=== PATIENT | male | born 1950 | race Caucasian/White ===

== ENCOUNTER → 2017-11-10 | Outpatient (CLI) | payer OTHER ==
[~2017-11-10] MED LIST: ATEN50TA8 PO; CIPR-255 PO; CLC100 PO; COEN1CAP28 PO; DOXA4TAB2 PO; EZET10TA47 PO; GABA600T PO; MULT-506 PO; OMEP20TA PO
--- NOTE | 2017-11-25 12:06 | CODING QUERY MEDICAL NECESSITY ---
SUPPORTING DIAGNOSIS NEEDED A supporting diagnosis is required for the test/procedure performed on this patient in order for us to be reimbursed by the patient's insurance. Please provide a supporting diagnosis for the following test/procedure listed below next to the test name along with your signature. *If there is no additional diagnosis for this patient that would support the following test/procedure please document that below next to the test/procedure. Test(s)/Procedure(s) that require a supporting diagnosis: * PSA DIAGNOSIS: Provider Signature: Date: Thank you Letty Mccauley [email or web address] Once completed, please kindly fax back to [phone] For questions please call [phone]
== END | disposition home or self-care (01) ==
LOC: C.LABBC 11:01
PROVIDERS: ATTEND Urology
DX: N52.9 Male erectile dysfunction, unspecified (principal); C61 Malignant neoplasm of prostate

== ENCOUNTER → 2018-02-20 | Outpatient (CLI) | payer OTHER ==
--- NOTE | 2018-02-20 12:47 | DIAGNOSTIC IMAGING REPORT ---
THORACIC SPINE 3 VIEWS HISTORY: New onset Back pain. Prostate cancer. COMPARISON: Thoracic spine 06/04/2013. FINDINGS: There is no fracture. No subluxation. Disc spaces are relatively preserved. Flowing anterior osteophytes within the mid to lower thoracic spine, unchanged. This is consistent with diffuse idiopathic skeletal hyperostosis. Paraspinal soft tissues are unremarkable. IMPRESSION: No fracture or subluxation within the thoracic spine. Diffuse idiopathic skeletal hyperostosis is again noted. Electronically signed by: Naveed Beltran M.D. 02/20/2018 12:46 PM Dictated Date/Time: 02/20/2018 12:42 PM
--- NOTE | 2018-02-20 12:51 | DIAGNOSTIC IMAGING REPORT ---
L-SPINE MIN 4 VIEWS ROUTINE CLINICAL HISTORY: 67 years-old Male presenting with M54.9 G62.9 low back pain radiating down the right leg. TECHNIQUE: Frontal, bilateral oblique, lateral, and coned in lateral views of lumbar spine were obtained. COMPARISON: None. FINDINGS: No scoliosis. Normal lumbar lordosis. Vertebral bodies maintain normal height and alignment. Anterior osteophytosis noted at several levels. Intervertebral disc heights preserved. Facet arthropathy suggested at L4-5 and L5-S1. Osseous neural foraminal narrowing may result. No compression deformity or evidence of subluxation. IMPRESSION: Multilevel degenerative changes with facet arthropathy potentially resulting in osseous neural foraminal narrowing at L4-5 and L5-S1. Electronically signed by: Figueroa Jordan M.D. 02/20/2018 12:50 PM Dictated Date/Time: 02/20/2018 12:47 PM
== END | disposition home or self-care (01) ==
LOC: C.RAD1850 12:01
PROVIDERS: ATTEND Student in an Organized Health Care Education/Training Program
DX: M47.27 Other spondylosis with radiculopathy, lumbosacral region (principal); M48.07 Spinal stenosis, lumbosacral region; M48.14 Ankylosing hyperostosis [Forestier], thoracic region; G62.9 Polyneuropathy, unspecified

== ENCOUNTER 2022-12-28 05:07 | Observation (INO) ==
--- NOTE | 2022-11-29 11:08 | PAT Medication Instructions ---
Medication Instructions Date of Service November 29, 2022 Home Medications aspirin 81 mg tablet,delayed release 81 mg PO QAM famotidine 40 mg tablet 40 mg PO QAM gabapentin 800 mg tablet 800 mg PO TID metoprolol succinate 25 mg tablet,extended release 24 hr 25 mg PO QAM multivitamin 1 tab PO QAM pravastatin 40 mg tablet 40 mg PO HS duloxetine 20 mg capsule,delayed release 20 mg PO QAM kjiwuoj-hxblwwnaanjha-oyuduvif 250 mg-250 mg-65 mg tablet (Excedrin Migraine) 2 tab PO Q12H PRN Migraine Headache diphenhydramine HCl 50 mg capsule (Banophen) 50 mg PO HS PRN Sleep ASK your surgeon for instructions aoiqdnr-lrrdnacfqsrdc-uzokskpk 250 mg-250 mg-65 mg tablet (Excedrin Migraine) 2 tab PO Q12H PRN Migraine Headache DO NOT take the morning of surgery multivitamin 1 tab PO QAM Take morning of surgery With a small sip of water, OTHERWISE NOTHING TO EAT OR DRINK AFTER MIDNIGHT: aspirin 81 mg tablet,delayed release 81 mg PO QAM (continue as normal unless told otherwise by surgeon) famotidine 40 mg tablet 40 mg PO QAM gabapentin 800 mg tablet 800 mg PO TID metoprolol succinate 25 mg tablet,extended release 24 hr 25 mg PO QAM duloxetine 20 mg capsule,delayed release 20 mg PO QAM Take evening before surgery gabapentin 800 mg tablet 800 mg PO TID pravastatin 40 mg tablet 40 mg PO HS diphenhydramine HCl 50 mg capsule (Banophen) 50 mg PO HS PRN Sleep (if needed) Other Notes If you have any questions please call us at [phone] or [phone] or [phone] or [phone]
--- NOTE | 2022-12-02 12:30 | Anesthesiology Consultation ---
Date of Service December 02, 2022 Assessment & Plan (1) Encounter for pre-operative examination: - COVID screening: Per assessment on 12/02: No known COVID-19 positive contacts or current COVID-19 related symptoms. Travel screen negative. Patient vaccinated. At surgeon discretion if preop Covid testing being done. - Outpatient joint assessment: Pt currently scheduled for inpatient pathway. If surgeon requests review for outpatient joint pathway, patient is acceptable candidate for outpatient joint program from anesthesia standpoint pending surgeon's office assessment of pt motivation/strong home support/completion of same day joint program preop requirements. Chart Review Chart Review: Acceptable Risk for Surgery and Patient seen in Pre Admission Testing Teaching & Discussion Pre-Anesthesia Teaching/Discussion Notes: Instructed NPO after midnight before surgery,except medications with 15 cc of water. Medication instructions provided according to the PAT guidelines. History Surgery Operation Date: 12/28/22 07:00 Proposed Procedures p Left Total Knee Arthroplasty - Vito Houston MD Height/Weight Height: 5 ft 8 in Weight: 98.2 kg Allergies Allergy/AdvReac Type Severity Reaction Status Date / Time latex Allergy Mild RASH AFTER Verified 11/26/22 13:52 LONG EXPOSURE tetanus immune globulin Allergy Mild UNSURE, Verified 11/26/22 13:52 POSS RASH Medications Home Medications Medication Instructions Recorded Confirmed Last Taken aspirin 81 mg tablet,delayed 81 mg PO QAM 08/22/20 11/26/22 05/10/21 release famotidine 40 mg tablet 40 mg PO QAM 08/22/20 11/26/22 05/11/21 gabapentin 800 mg tablet 800 mg PO TID 08/22/20 11/26/22 05/11/21 metoprolol succinate 25 mg 25 mg PO QAM 08/22/20 11/26/22 05/11/21 tablet,extended release 24 hr multivitamin 1 tab PO QAM 08/22/20 11/26/22 05/11/21 pravastatin 40 mg tablet 40 mg PO HS 08/22/20 11/26/22 05/10/21 duloxetine 20 mg capsule,delayed 20 mg PO QAM 08/26/20 11/26/22 05/11/21 release lcfoyly-ncurzgtbvuxeu-hcztgycz 250 2 tab PO Q12H PRN Migraine Headache 05/11/21 11/26/22 05/11/21 07:00 mg-250 mg-65 mg tablet (Excedrin 2 pills Migraine) diphenhydramine HCl 50 mg capsule 50 mg PO HS PRN Sleep 05/11/21 11/26/22 05/10/21 (Banophen) Past Medical History Medical History 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, no current/residual issues CKD (chronic kidney disease), stage III Per records GERD (gastroesophageal reflux disease) Hypertriglyceridemia Parathyroid disorder S/p parathyroidectomy secondary to hypercalcemia Premature atrial contraction Per records Prostate cancer 2018 - s/p prostatectomy Exercise / Class Metabolic Activity II 4-5 Yardwork/Stairs/Walk up hill Past Family History Family History Mother Breast cancer Hypertension Father Cancer Other Diabetes Past Surgical History Surgical History H/O cataract removal with insertion of prosthetic lens right and left H/O oral surgery H/O prostatectomy 02/20/2018 prostate cancer H/O right inguinal hernia repair (10/02/20) Right Open Inguinal Hernia Repair with Mesh Dr. Kraus 10/02/2020 LMA#5. History of appendectomy History of cardiac cath having palpitations and found to have PVC's, [facility]; f/u PCP Hx of blepharoplasty Hx of colonoscopy Hx of parathyroidectomy left side Hx of vasectomy Status post gamma knife treatment for acoustic neuroma 2004 Past Anesthesia History No Hx of Anesthesia Complications and No Family Hx of Anesthesia Complications History of PONV No Hx of PONV and No Hx of Motion Sickness Social History Smoking Status: Never smoker Do You Dip or Chew Tobacco: No Hx Alcohol Use: Yes alcohol intake frequency: holidays/special occasions only Hx Substance Use: No substance use type: does not use Review of Systems Patient denies chest pain, shortness of breath, dyspnea on exertion, fever, chills, cough, wheezing, palpitations. Physical Exam Vital Signs VITALS BP 149/81 P 62 TEMP 98.3 SP02 97%RA RESP 16 PHYSICAL Full cervical extension range of motion. Full TMJ range of motion. TMD 4 finger breaths Mallampati Score 1 Dentition: full upper/lower dentures Lungs: clear throughout to auscultation Cardiac: regular rate and rhythm, no murmurs noted Spine: normal Carotid arteries: negative bruit Extremities: no edema Lab Results Anesthesia Preop Results Results Anesthesia Widget: WBC 7.10 K/ul (4.8-10.8) 12/02/22 Hgb 15.5 g/dl (14.0-18.0) 12/02/22 Hct 45.8 % (40.1-51.0) 12/02/22 Plt 199 K/uL (130-400) 12/02/22 Na 142 mmol/L (136-145) 12/02/22 K 4.2 mmol/L (3.5-5.1) 12/02/22 Cl 104 mmol/L (98-107) 12/02/22 CO2 34 mmol/L (21-32) H 12/02/22 BUN 12 mg/dl (6-23) 12/02/22 Creat 1.06 mg/dl (0.6-1.4) 12/02/22 Glucose Level 93 mg/dl (70-99(Fasting)) 12/02/22 PT 10.8 Seconds (9.0-12.0) 12/02/22 PTT 27.7 Seconds (21.0-31.0) 12/02/22 INR 1.0 (0.9-1.1) 12/02/22 Urine Color Yellow 12/02/22 Urine Appearance Clear (Clear) 12/02/22 Urine pH 6.5 (4.5-7.5) 12/02/22 Urine Specific [place] 1.011 (1.000-1.030) 12/02/22 Urine Protein Negative (Negative) 12/02/22 Urine Glucose (UA) Negative (Negative) 12/02/22 Urine Ketones Negative (Negative) 12/02/22 Urine Blood Negative (Negative) 12/02/22 Urine Nitrite Negative (Negative) 12/02/22 Urine Bilirubin Negative (Negative) 12/02/22 Urine Urobilinogen Negative (Negative) 12/02/22 Urine Leukocyte Esterase Negative (Negative) 12/02/22 Blood Type O Negative 12/02/22 Antibody Screen NEGATIVE 12/02/22 Testing Electrocardiogram Date: 12/02/22 Findings: + NSR @ (61) Chest X-Ray Date: 12/02/22 FINDINGS: PA and lateral chest radiographs are compared to study dated 06/15/2021. The cardiomediastinal silhouette is unremarkable noting atherosclerotic calcification of the thoracic aorta. The lungs and pleural spaces are clear. There is no pneumothorax. The skeletal structures are osteopenic. The bony thorax appears intact. IMPRESSION: No active disease in the chest. COVID-19 Risk Screen Screening Information COVID-19 Screen Date: 12/02/22 Exposure 21 Days Family/Household +COVID Last 21 Days: No Exposure 10 Days Any COVID Exposure Last 10 Days: No Symptoms Last 10 Days Experienced COVID Sx Last 10 Days: No + COVID 0-90 Days COVID + in Last 0-90 Days: No
[2022-12-28] MEDS ORDERED: Scopolamine 1 MG TDSY TD SCH (06:00)
[2022-12-28] MEDS ORDERED: LR 60ML/HR IV SCH (06:00)
[2022-12-28] MEDS ORDERED: ROPIVACAINE 0.5% HCL/PF 150 MG, BUPIVACAINE 0.75% MPF 20 ML, EPINEPHrine 0.15 MG, Ketor... INFIL SCH (06:00)
[2022-12-28] MEDS ORDERED: TRANEXAMIC ACID 1,000 MG **IV Intra-op IV SCH (06:00)
[2022-12-28] MEDS ORDERED: ceFAZolin 2000MG 2,000 MG/15 ML SYR IV SCH (06:00)
[2022-12-28] MEDS ORDERED: LR 500ML BOLUS, THEN 15ML/HR IV SCH (06:00)
[2022-12-28] MEDS ORDERED: TRANEXAMIC ACID 1,000 MG **IV Pre-op IV SCH (06:00)
[2022-12-28] MEDS ORDERED: ACETAMINOPHEN 500 MG TAB PO SCH (06:00)
[2022-12-28] MEDS ORDERED: CeleBREX 200 MG CAP PO SCH (06:00)
[2022-12-28] MEDS ORDERED: EPINEPHrine INJ 1 MG/ML AMP ONE (06:32)
[2022-12-28] MEDS ORDERED: ROPIVACAINE 0.5% 5 MG/ML 30 ML VIAL ONE (06:32)
[2022-12-28] MEDS ORDERED: BUPIVACAINE 0.5 % 5 MG/1 ML PF 10ML VIAL ONE (06:32)
--- NOTE | 2022-12-28 06:32 | History & Physical Bridge Note ---
Date of Service December 28, 2022 History & Physical Bridge Note I have examined the patient, reviewed the History & Physical and in the interval since the performance of the History & Physical I have noted the following changes of clinical significance: no changes noted Patient is aware of the risks, is asymptomatic, and tested negative for COVID- 19.
[2022-12-28] MEDS ORDERED: MIDAZOLAM HCL 1 MG/ML 2ML VIAL ONE (06:58)
[2022-12-28] MEDS ORDERED: fentaNYL citrate 100 MCG/2 ML VIAL ONE ×2 (06:58→10:17)
[2022-12-28] MEDS ORDERED: LIDOCAINE 2% MPF LOCAL 5 ML VIAL INFIL ONE (07:21)
[2022-12-28] MEDS ORDERED: PROPOFOL IV EMULSION 10 MG/ML 20 ML VIAL IV ONE (07:21)
[2022-12-28] MEDS ORDERED: ORTHO JOINT ANESTHETIC ONE (07:32)
[2022-12-28] MEDS ORDERED: ePHEDrine sulfate 50 MG/ML SYR ONE (09:02)
[2022-12-28] MEDS ORDERED: ATROPINE SULFATE 0.1 MG/ML 10ML SYR IV PRN (10:17)
[2022-12-28] MEDS ORDERED: fentaNYL citrate 100 MCG/2 ML VIAL IV PRN (10:17)
[2022-12-28] MEDS ORDERED: ONDANSETRON INJ 2 MG/ML 2 ML VIAL IV PRN ×2 (10:17→12:43)
[2022-12-28] MEDS ORDERED: PROMETHAZINE HCL 12.5 MG in SODIUM CHLORIDE 0.9% 50 ML IV PRN (10:17)
[2022-12-28] MEDS ORDERED: FLUMAZENIL 0.1 MG/1 ML 10 ML VIAL IV PRN (10:17)
[2022-12-28] MEDS ORDERED: NALOXONE HCL 0.4 MG/1 ML VIAL/CARP IV PRN ×2 (10:17→12:43)
[2022-12-28] MEDS ORDERED: HYDROmorphone INJ 1 MG/ML SYRINGE IV PRN (10:17)
[2022-12-28] MEDS ORDERED: ePHEDrine sulfate 50 MG/ML AMP IV PRN (10:17)
--- NOTE | 2022-12-28 10:37 | Post Operative Brief Note ---
Immediate Post Op Note v1 Date of Surgery December 28, 2022 Pre & Post Diagnosis Operation Date: 12/28/22 07:00 Pre-Op Diagnosis: Left Knee Osteoarthritis Post-Op Diagnosis: Left Knee Osteoarthritis I identified the patient and participated in the time-out.: Yes Procedure Operation Date: 12/28/22 07:00 Actual Procedures p Left Total Knee Arthroplasty - Vito Houston MD Surgeon Vito Houston MD Coin Box Collector C TAWANDA Danielson (No fellow avail) Estimated Blood Loss 100 Findings Consistent with Post-Op Diagnosis Fluids 1400 cc Specimens Left knee contents Anesthesia Type MAC Spinal Regional Complications none
--- NOTE | 2022-12-28 10:38 | Operative Report ---
Post Operative Report Pre & Post Diagnosis Operation Date: 12/28/22 07:00 Pre-Op Diagnosis: Left Knee Osteoarthritis Post-Op Diagnosis: Left Knee Osteoarthritis I identified the patient and participated in the time-out.: Yes Procedure Operation Date: 12/28/22 07:00 Actual Procedures p Left Total knee replacement, imageless computer assisted navigation - Vito Houston MD Surgeon Vito Houston MD Woodworker Helper Celeste Danielson PA-C (No fellow avail) Estimated Blood Loss 100 Findings See Below Examined Under Anesthesia: ROM -- There was 5 degrees to 115 degrees of flexion Ligamentous examination -- revealed stable Anton, posterior drawer, varus and valgus stress at 5 and 30 degrees. Outerbridge Type IV changes of Patellofemoral & medial compartments, Lteral femoral condyle had grade II changes with marginal osteophytes. Fluids 1400 cc Specimens Left knee contents Anesthesia Type MAC Spinal Regional Complications none Indications This is a 72-year-old male who has clinical and radiographic findings consistent with osteoarthritis of the a left knee. I recommended that a left total knee replacement be performed. The patient understands the risks of surgery, which include but not limited to: bleeding, infection, re-operation, damage to nerves and arteries, continued knee pain, knee stiffness, DVT, and . The patient understands all of these instructions and explanations, all of his questions have been satisfactorily addressed and the patient has elected to proceed. Informed consent was signed. Description of Procedure IMPLANTS: 1. Femur: Triathlon #6 Left PS. 2. Tibia: Triathlon #6 Jakin. 3. Insert: Triathlon #6 x 11 mm PS X3 poly. 4. Patella: Triathlon A38 x 11 mm X3 poly. 5. Palacos cement. Celeste Danielson PA-C is assisting with positioning, retracting, and closure due to fellow not available. Procedure: The patient was taken to the Operating Room and placed in the supine position after spinal and adductor canal nerve block was administered. My initials and a multidisciplinary time-out were used to identify the left leg as the correct operative limb. A tourniquet was placed high in the thigh. Prior to the incision, 2 grams of intravenous Ancef were given. The left leg was then prepped and draped in a standard sterile fashion. An Esmarch was used to exsanguinate the leg and the tourniquet was inflated to 250 mmHg. The planned mid-line 20 cm incision was created exposing the extensor mechanism. The medial parapatellar arthrotomy was made and the patella was everted. The patella was addressed first. It was prepared by reaming from 26 mm down to 15 mm. An A38 button was found to fit best. The peg holes were made in the standard fashion. The femur was addressed next and using computer assisted OrthoAlign with 3 degrees of flexion and 0 degrees of valgus, removing 10 mm in the standard fashion for the distal cut. The cut was made and the 4-in-1 cutting block for a size 6 femur was placed. These cuts and the cuts to place the box were made in the standard fashion. Our attention was then drawn to the tibia cut with using imageless computer assisted OrthoAlign, taking 2 mm from the medial low side. There was sufficient extension and flexion gap to fit a 11 mm spacer. A #6 Tibial baseplate fit well. A trial with a 11 mm spacer showed excellent stability in both flexion and extension, with good ligament balance, and thumbs free patellar tracking. Range of motion of 0-125 degrees. The tibial baseplate was prepped for the keel and stem. All components were removed. All surfaces were copiously irrigated prior to placement of the components. The femoral component followed by Tibial baseplate were cemented in place and an 11 mm trial placed. Next, the patellar button was placed using the same cement. Once the cement had cured, the range of motion and stability were unchanged. The 11 mm X3 poly was placed. Again the range of motion and stability were unchanged The tourniquet was deflated. Hemostasis was obtained. 90 ml of total knee cocktail were injected into the soft tissues and periosteum. The extensor mechanism was closed with 1-0 Vicryl and 0 Stratafix with the knee bent approximately 60 degrees in a standard fashion. The peritenon and deep fascia was closed with 2-0 Vicryl. The subcutaneous layer was closed with 3-0 Vicryl. The skin was closed with Zipline and shield. The limb was cleaned and dried. 4x4 dressing was placed over top followed by ABDs, sterile Webril, and a foot to thigh Jose Juan bandage. The patient was then transferred to the Recovery Room in stable condition. The sponge and needle counts were correct. POST-OP INSTRUCTIONS: The patient will be WBAT. The patient will be admitted to the hospital. Labs will be obtained during the stay. DVT prophylaxis will included aspirin for 6 weeks, TEDs, and mechanical foot pumps. The dressing will be changed prior to their discharge or postop day #2 and covered with a Silverlon dressing, whichever comes first as long as the incision as dry. I attest to the content of the Intraoperative Record and any orders documented therein. Any exceptions are noted below.
--- NOTE | 2022-12-28 10:51 | Operative Report ---
Post Operative Report Pre & Post Diagnosis Operation Date: 12/28/22 07:00 Pre-Op Diagnosis: Left Knee Osteoarthritis Post-Op Diagnosis: Left Knee Osteoarthritis I identified the patient and participated in the time-out.: Yes Procedure Operation Date: 12/28/22 07:00 Actual Procedures p Left Total Knee Arthroplasty - Vito Marce Houston MD Surgeon Dr. Pj Houston Assistant To The Ceo Celeste Danielson PA-C (No fellow avail) Estimated Blood Loss 100 Findings Consistent with Post-Op Diagnosis See operative report Specimens See operative report Drains None Complications none Disposition Accompanied Patient To Recovery: Yes Indications This 72-year-old male presented to the office with complaints of persisting left knee pain. He had tried conservative care measures without improvement. He elected to proceed with surgical intervention after being educated about potential risks and outcomes. Preoperative imaging was obtained. Description of Procedure Patient was administered a spinal anesthetic and then taken to the operating room where he was given sedation. He was prepped and draped in the usual sterile fashion. Please see Dr. Houston's operative report for specifics of the procedure. I was present for the entire case from initial patient positioning through final wound closure. Assistance was provided in tissue retraction, hemostasis, trial implant placement, final implant placement, and final wound closure. Patient was taken to the recovery room in satisfactory condition. I attest to the content of the Intraoperative Record and any orders documented therein. Any exceptions are noted below.
--- NOTE | 2022-12-28 11:49 | Anesthesiology Progress Note ---
Date of Service December 28, 2022 Anesthesia Post Procedure Vital Signs Vital Signs: Temp Pulse Pulse Resp BP Pulse Ox O2 Del Method 12/28/22 11:40 36.2 C L 69 14 114/68 97 Room Air 12/28/22 11:30 61 16 118/78 94 Room Air 12/28/22 11:20 63 14 113/65 95 Room Air 12/28/22 11:15 65 12 122/75 93 Room Air 12/28/22 11:05 65 17 116/75 98 Oxymask 12/28/22 10:55 73 14 126/73 100 Oxymask 12/28/22 10:49 36.2 C L 78 13 123/78 97 Oxymask 12/28/22 05:30 36.5 C 80 20 178/97 H 97 Room Air O2 Flow Rate 12/28/22 11:40 12/28/22 11:30 12/28/22 11:20 12/28/22 11:15 12/28/22 11:05 6 12/28/22 10:55 6 12/28/22 10:49 6 12/28/22 05:30 Transfer of Care Handoff Completed per policy Notes Mental Status: alert / awake / arousable Patient Amnestic to Procedure: Yes Nausea / Vomiting: adequately controlled Pain: adequately controlled Airway Patency, RR, SpO2: stable & adequate BP & HR: stable & adequate Hydration State: stable & adequate Neuraxial Anesthesia: was administered and sensory block is resolving Anesthetic Complications: no major complications apparent
[2022-12-28] MEDS ORDERED: TAMSULOSIN HCL 0.4 MG CAP PO PRN (12:43)
[2022-12-28] MEDS ORDERED: HYDROmorphone INJ 0.5 MG/0.5 ML SYR IV PRN (12:43)
[2022-12-28] MEDS ORDERED: oxyCODONE HCL IR 5 MG TAB (IMMEDIATE RELEASE) PO PRN (12:43)
[2022-12-28] MEDS ORDERED: ALUMINUM/MAGNESIUM SUSP 30 ML UDC PO PRN (12:43)
[2022-12-28] MEDS ORDERED: MAGNESIUM HYDROXIDE SUSP 30 ML UDC PO PRN (12:43)
[2022-12-28] MEDS ORDERED: bisacodyL 10 MG SUPP PR PRN (12:43)
[2022-12-28] MEDS ORDERED: METOCLOPRAMIDE HCL INJ 5 MG/ML 2 ML VIAL IV PRN (12:43)
[2022-12-28] MEDS ORDERED: diphenhydrAMINE 50 MG/ML VIAL IV PRN (12:43)
[2022-12-28] MEDS: SODIUM CHLORIDE 0.9% 1000ML 1,000 ML IV SCH ×2 (13:36→23:17)
[2022-12-28] MEDS: KETOROLAC TROMETHAMINE 15 MG/ML VIAL IV SCH ×2 (13:42→18:23)
[2022-12-28] MEDS: ACETAMINOPHEN 500 MG TAB PO SCH ×2 (13:42→21:51)
--- NOTE | 2022-12-28 14:22 | XRay Report ---
LEFT KNEE 2 VIEWS History: Left total knee arthroplasty. Degenerative arthritis. Postop. FINDINGS: The patient is status post a left total knee arthroplasty. The hardware is intact. No fract ure or dislocation. IMPRESSION: Left total knee arthroplasty. No evidence for hardware complication. ACT 112: Negative or not required by law. Electronically signed by: Naveed Beltran M.D. 12/28/2022 2:20 PM
[2022-12-28] MEDS: GABAPENTIN 800 MG TAB PO SCH ×2 (15:39→19:44)
[2022-12-28] MEDS ORDERED: Scopolamine CHECK PATCH PLACEMENT SCH (16:00)
--- NOTE | 2022-12-28 16:15 | Orthopedic Progress Note ---
Date of Service December 28, 2022 Assessment & Plan (1) Osteoarthritis, knee: Plan: POD #0 s/p L TKA, doing as well as expected. Resume diet. WBAT with walker. OOB to chair. Continue pain control. Check labs tomorrow. DVT prophylaxis: TEDs 3 weeks, foot pumps while in hospital, ASA 81 mg BID for 6 weeks. PT/OT. Switch to Silverlon dressing if incision is dry prior to discharge or POD #2, whichever comes first. D/C planning. Present on Admission?: Yes Admission and Anticipated Discharge Date Admission Date: December 28, 2022 Subjective Doing fairly well Physical Exam Physical Exam: LLE: BCR < 2 sec. Sensation to light touch intact distally. Wiggling ankle and toes. Calf soft and non-tender. Dressing is clean, dry, intact. Able to lift leg off bed. Results & Data ([facility]) Vital Signs (Past 12 Hours) Vital Signs Temp Pulse Pulse Resp BP Pulse Ox O2 Del Method 12/28/22 15:06 36.8 C 68 18 126/73 93 Room Air 12/28/22 13:58 36.3 C L 67 20 126/74 95 Room Air 12/28/22 13:00 36.3 C L 65 18 121/78 95 Room Air 12/28/22 12:00 36.3 C L 68 18 127/75 95 Room Air 12/28/22 12:30 36.3 C L 67 16 128/76 97 Room Air 12/28/22 11:50 79 14 115/73 96 Room Air 12/28/22 11:40 36.2 C L 69 14 114/68 97 Room Air 12/28/22 11:30 61 16 118/78 94 Room Air 12/28/22 11:20 63 14 113/65 95 Room Air 12/28/22 11:15 65 12 122/75 93 Room Air 12/28/22 11:05 65 17 116/75 98 Oxymask 12/28/22 10:55 73 14 126/73 100 Oxymask 12/28/22 10:49 36.2 C L 78 13 123/78 97 Oxymask 12/28/22 05:30 36.5 C 80 20 178/97 H 97 Room Air O2 Flow Rate 12/28/22 15:06 12/28/22 13:58 12/28/22 13:00 12/28/22 12:00 12/28/22 12:30 12/28/22 11:50 12/28/22 11:40 12/28/22 11:30 12/28/22 11:20 12/28/22 11:15 12/28/22 11:05 6 12/28/22 10:55 6 12/28/22 10:49 6 12/28/22 05:30 Laboratory Results Laboratory Results SARS-CoV-2, RNA, NAAT NEGATIVE (NEGATIVE) 12/28/22 05:20 Impressions Knee X-Ray 12/28/22 10:59 LEFT KNEE 2 VIEWS History: Left total knee arthroplasty. Degenerative arthritis. Postop. FINDINGS: The patient is status post a left total knee arthroplasty. The hardware is intact. No fracture or dislocation. IMPRESSION: Left total knee arthroplasty. No evidence for hardware complication. ACT 112: Negative or not required by law. Electronically signed by: Naveed Beltran M.D. 12/28/2022 2:20 PM
[2022-12-28] MEDS: ASCORBIC ACID 500 MG TAB PO SCH (17:22)
[2022-12-28] MEDS: FERROUS GLUCONATE 324 MG TAB PO SCH (17:23)
[2022-12-28] MEDS: ceFAZolin 2000MG 2,000 MG/15 ML SYR IV SCH (17:25)
[2022-12-28] MEDS: ASPIRIN 81 MG ECTAB PO SCH (19:43)
[2022-12-28] MEDS: DOCUSATE SODIUM 100 MG CAP PO SCH (19:44)
[2022-12-28] MEDS ORDERED: SENNA 8.6 MG TAB PO SCH (21:00)
[2022-12-28] MEDS ORDERED: PRAVASTATIN SOD 40 MG TAB PO SCH (21:00)
[2022-12-29] MEDS: ceFAZolin 2000MG 2,000 MG/15 ML SYR IV SCH (00:10)
[2022-12-29] MEDS: KETOROLAC TROMETHAMINE 15 MG/ML VIAL IV SCH ×2 (00:10→05:18)
[2022-12-29] MEDS: ACETAMINOPHEN 500 MG TAB PO SCH ×2 (05:19→12:34)
[2022-12-29] MEDS ORDERED: dexAMETHasone 10 MG in SYRINGE 0 ML IV SCH (08:00)
[2022-12-29 08:14] LABS: Hematocrit (blood only) 38.5 % (42.0-52.0); Hemoglobin 13.2 g/dl (14.0-18.0); Mean Corpuscular Hemoglobin 30.8 pg (25.0-34.0); Mean Corpuscular Hgb Conc 34.3 g/dL (32.0-36.0); Mean Corpuscular Volume 89.7 fL (80.0-100.0); Mean Platelet Volume 10.3 fL (9.4-12.4); Platelet Count 183 K/uL (130-400); RDW Coefficient of Variation 12.5 % (11.5-14.5); Red Blood Count 4.29 M/uL (4.70-6.10)
[2022-12-29 08:27] LABS: Calcium 8.9 mg/dl (8.5-10.1); Creatinine Clr Calc Pharmacy 62.8 ml/min; Est GFR (African American) 69.8 ml/min; Est GFR (Non-African American) 60.2 ml/min; Potassium 4.7 mmol/L (3.5-5.1)
[2022-12-29] MEDS: DOCUSATE SODIUM 100 MG CAP PO SCH (08:57)
[2022-12-29] MEDS: GABAPENTIN 800 MG TAB PO SCH ×2 (08:57→12:34)
[2022-12-29] MEDS: ASPIRIN 81 MG ECTAB PO SCH (08:57)
[2022-12-29] MEDS: ASCORBIC ACID 500 MG TAB PO SCH (08:58)
[2022-12-29] MEDS: FERROUS GLUCONATE 324 MG TAB PO SCH (08:58)
[2022-12-29] MEDS ORDERED: MULTIVITAMIN TAB PO SCH (09:00)
[2022-12-29] MEDS ORDERED: METOPROLOL SUCC 25MG EXT REL TAB PO SCH (09:00)
[2022-12-29] MEDS ORDERED: FAMOTIDINE 40 MG TABLET PO SCH (09:00)
[2022-12-29] MEDS ORDERED: DULoxetine HCL 20 MG CAP PO SCH (09:00)
--- NOTE | 2022-12-29 11:31 | Orthopedic Progress Note ---
Date of Service December 29, 2022 Assessment & Plan (1) Osteoarthritis, knee: Plan: POD #1 s/p L TKA, doing as well as expected. Resume diet. WBAT with walker. OOB to chair. Continue pain control. DVT prophylaxis: TEDs 3 weeks, foot pumps while in hospital, ASA 81 mg BID for 6 weeks. PT/OT. Silverlon dressing applied. Case management for disposition. Plans for discharge to home with home health later this afternoon. Dr. Houston aware of findings. Admission and Anticipated Discharge Date Admission Date: December 28, 2022 Supervising Physician Co-Signing Physician Notes I, Dr. Houston, saw and examined the patient and discussed the management with my PA. I reviewed my PAs note and agree with the documented findings and the plan of care I developed. Subjective Doing well, has been walking around the halls with walker. States some pain in left knee, but pain medications keeping it under control. Denies any fevers, chills, lightheadedness or dizziness, chest pain or shortness of breath. Has been passing gas. Has not moved his bowels yet. Denies any trouble urinating. Physical Exam Musculoskeletal: Mild edema to his left leg. No pitting. Calf is supple and nontender. Full active range of motion of his left ankle and toes on left foot. Distal pulses are 1+. Distal sensation is normal. Strength of his left leg is 5/5. He is able to independently straight leg raise today. He can flex to approximately 80 degrees. Postoperative dressings were removed. Zip line is in place. No active drainage. Some dried bloody drainage was cleansed with some sterile saline and a new Silverlon dressing was applied to his left knee incision. Results & Data ([facility]) Vital Signs (Past 12 Hours) Vital Signs Temp Pulse Resp BP Pulse Ox O2 Del Method 12/29/22 07:49 37.0 C 77 16 113/74 94 Room Air 12/29/22 03:42 36.6 C 80 16 146/73 H 94 Room Air Laboratory Results 12/29/22 12/29/22 Range/Units 07:34 07:34 WBC 14.80 H (4.8-10.8) K/ul RBC 4.29 L (4.70-6.10) M/uL Hgb 13.2 L (14.0-18.0) g/dl Hct 38.5 L (42.0-52.0) % MCV 89.7 (80.0-100.0) fL MCH 30.8 (25.0-34.0) pg MCHC 34.3 (32.0-36.0) g/dL RDW Std Deviation 41.0 (36.4-46.3) fL RDW Coeff of Gautam 12.5 (11.5-14.5) % Plt Count 183 (130-400) K/uL MPV 10.3 (9.4-12.4) fL Sodium 139 (136-145) mmol/L Potassium 4.7 (3.5-5.1) mmol/L Chloride 103 (98-107) mmol/L Carbon Dioxide 30 (21-32) mmol/L Anion Gap 6 (3-11) BUN 19 (6-23) mg/dl Creatinine 1.19 (0.6-1.4) mg/dl Est Cr Clr Drug Dosing 62.8 ml/min Est GFR ( Amer) 69.8 ml/min Est GFR (Non-Af Amer) 60.2 ml/min BUN/Creatinine Ratio 16.0 (10-20) Glucose 125 H (70-99(Fasting)) mg/dl Calcium 8.9 (8.5-10.1) mg/dl Diagnostic Findings LEFT KNEE 2 VIEWS History: Left total knee arthroplasty. Degenerative arthritis. Postop. FINDINGS: The patient is status post a left total knee arthroplasty. The hardware is intact. No fracture or dislocation. IMPRESSION: Left total knee arthroplasty. No evidence for hardware complication.
--- NOTE | 2022-12-29 11:39 | Discharge Summary ---
Date of Service December 29, 2022 Discharge Data Procedures Performed Operation Date: 12/28/22 07:00 Actual Procedures p Left Total Knee Arthroplasty - Vito Marce Houston MD Hospital Course (1) Osteoarthritis, knee: POD #1 s/p L TKA, doing as well as expected. Resume diet. WBAT with walker. OOB to chair. Continue pain control. DVT prophylaxis: TEDs 3 weeks, foot pumps while in hospital, ASA 81 mg BID for 6 weeks. PT/OT. Silverlon dressing applied on POD1 Case management for disposition. Plans for discharge to home with home health later this afternoon. Dr. Houston aware of findings.
== END 2022-12-29 13:31 | disposition home health service (06) ==
LOC: 3W 05:07 → ASU 05:07

== ENCOUNTER 2024-02-07 08:40 | Observation (INO) ==
--- NOTE | 2024-01-16 10:45 | PAT Medication Instructions ---
Medication Instructions Date of Service January 16, 2024 Home Medications Medication Instructions Recorded oxycodone 5 mg tablet 5 - 10 mg (1 - 2 x 5 mg) PO Q4H 12/29/22 PRN pain #20 tabs famotidine 40 mg tablet 40 mg PO QAM gabapentin 800 mg tablet 800 mg PO TID metoprolol succinate 25 mg tablet,extended release 24 hr 25 mg PO QAM pravastatin 40 mg tablet 40 mg PO HS myveqnz-ztifxwcknjjui-afynkrch 250 mg-250 mg-65 mg tablet (Excedrin Migraine) 2 tab PO Q12H PRN diphenhydramine HCl 50 mg capsule (Banophen) 50 mg PO HS PRN oxycodone 5 mg tablet 5 - 10 mg (1 - 2 x 5 mg) PO Q4H PRN aspirin 81 mg tablet 81 mg PO HS duloxetine 20 mg capsule,delayed release sprinkle 20 mg PO QAM lutein 20 mg-zeaxanthin 1,000 mcg capsule 1 cap PO QAM omeprazole 40 mg capsule,delayed release 40 mg PO QPM ASK your surgeon for instructions zbklpkp-pyqkmhnsyshub-elcimuzz 250 mg-250 mg-65 mg tablet (Excedrin Migraine) 2 tab PO Q12H PRN ASK your prescriber and surgeon aspirin 81 mg tablet 81 mg PO HS STOP taking 2 weeks before surgery (or as soon as possible if surgery is within 2 weeks) lutein 20 mg-zeaxanthin 1,000 mcg capsule 1 cap PO QAM Take morning of surgery With a small sip of water, OTHERWISE NOTHING TO EAT OR DRINK AFTER MIDNIGHT: famotidine 40 mg tablet 40 mg PO QAM gabapentin 800 mg tablet 800 mg PO TID metoprolol succinate 25 mg tablet,extended release 24 hr 25 mg PO QAM oxycodone 5 mg tablet 5 - 10 mg (1 - 2 x 5 mg) PO Q4H PRN(if needed) duloxetine 20 mg capsule,delayed release sprinkle 20 mg PO QAM Take evening before surgery gabapentin 800 mg tablet 800 mg PO TID pravastatin 40 mg tablet 40 mg PO HS diphenhydramine HCl 50 mg capsule (Banophen) 50 mg PO HS PRN(if needed) oxycodone 5 mg tablet 5 - 10 mg (1 - 2 x 5 mg) PO Q4H PRN(if needed) omeprazole 40 mg capsule,delayed release 40 mg PO QPM Other Notes If you have any questions please call us at [phone] or [phone] or [phone] or [phone]
--- NOTE | 2024-01-19 11:29 | Anesthesiology Consultation ---
Date of Service January 19, 2024 Assessment & Plan (1) Encounter for pre-operative examination: Plan - PCP appointment 02/02/24, Dr. Sparrow [facility]. - PONV: Patient has used scop patch in past with benefit. Given age > 64 y/o, will leave treatment plan for PONV to assigned anesthesiologist deb TERRY. Chart Review Chart Review: Pending: Refer to Additional Notes / Consult section and Patient seen in Pre Admission Testing Teaching & Discussion Pre-Anesthesia Teaching/Discussion Notes: Instructed NPO after midnight before surgery, except medications with 15 cc of water. Medication instructions provided according to the PAT guidelines. History Surgery Operation Date: 02/07/24 07:00 Proposed Procedures p Right Total Knee Arthroplasty - Vito Marce Houston MD Height/Weight Height: 5 ft 9 in Weight: 97.522 kg Allergies Allergy/AdvReac Type Severity Reaction Status Date / Time adhesive Allergy Intermediate hives Verified 01/19/24 11:32 latex Allergy Mild RASH AFTER Verified 01/12/24 11:15 LONG EXPOSURE tetanus immune globulin Allergy Mild UNSURE, Verified 01/12/24 11:15 POSS RASH Medications Home Medications Medication Instructions Recorded Confirmed Last Taken famotidine 40 mg tablet 40 mg PO QAM 08/22/20 01/12/24 12/28/22 03:30 gabapentin 800 mg tablet 800 mg PO TID 08/22/20 01/12/24 12/28/22 03:30 metoprolol succinate 25 mg 25 mg PO QAM 08/22/20 01/12/24 12/28/22 03:30 tablet,extended release 24 hr pravastatin 40 mg tablet 40 mg PO HS 08/22/20 01/12/24 12/27/22 21:00 qvkcgbv-brwmdqqrcdopy-tyfgzrwv 250 2 tab PO Q12H PRN Migraine Headache 05/11/21 01/12/24 05/11/21 07:00 mg-250 mg-65 mg tablet (Excedrin 2 pills Migraine) diphenhydramine HCl 50 mg capsule 50 mg PO HS PRN Sleep 05/11/21 01/12/24 12/27/22 21:00 (Banophen) oxycodone 5 mg tablet 5 - 10 mg (1 - 2 x 5 mg) PO Q4H 12/29/22 Unknown PRN pain #20 tabs aspirin 81 mg tablet 81 mg PO HS 01/12/24 01/12/24 Unknown duloxetine 20 mg capsule,delayed 20 mg PO QAM 01/12/24 01/12/24 Unknown release sprinkle lutein 20 mg-zeaxanthin 1,000 mcg 1 cap PO QAM 01/12/24 01/12/24 Unknown capsule omeprazole 40 mg capsule,delayed 40 mg PO QPM 01/12/24 01/12/24 Unknown release Past Medical History Medical History (Updated 01/19/24 @ 11:33 by Jenane Scott PA-C) 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 Exercise / Class Metabolic Activity II 4-5 Yardwork/Stairs/Walk up hill (denies chest discomfort or shortness of breath with 1 FOS) Past Family History Family History Mother Breast cancer Hypertension Father Cancer Other Diabetes Past Surgical History Surgical History (Updated 01/19/24 @ 11:34 by Jeanne Scott PA-C) H/O cataract removal with insertion of prosthetic lens R/L H/O oral surgery H/O prostatectomy 02/20/2018 prostate cancer H/O right inguinal hernia repair Right Open Inguinal Hernia Repair with Mesh Dr. Kraus 10/02/2020 LMA#5 History of appendectomy History of arthroplasty of left knee Left TKA (12/28/22): SAB x3 attempts + regional at [facility] History of cardiac cath having palpitations and found to have PVC's, [facility], denies stents; f/u PCP Hx of blepharoplasty Hx of colonoscopy Hx of parathyroidectomy left side Hx of vasectomy Nausea and vomiting after administration of anesthetic agent No issues when scopolamine patch used in past Status post gamma knife treatment for acoustic neuroma 2004 Past Anesthesia History No Hx of Anesthesia Complications and No Family Hx of Anesthesia Complications History of PONV No Hx of Motion Sickness and History of PONV (pt reports benefit with scop patch in past) Social History Smoking Status: Never smoker Do You Dip or Chew Tobacco: No Hx Alcohol Use: No Hx Substance Use: No substance use type: does not use Review of Systems Snoring, denies witnessed apneas. Patient denies chest pain, shortness of breath, dyspnea on exertion, fever, chills, cough, wheezing, or palpitations. Physical Exam Vital Signs Vitals BP 144/92 P 63 TEMP 97.8 SP02 98% on RA RESP 18 Physical Patient resting comfortably in chair in no acute distress, alert and oriented, responding appropriately throughout visit Full cervical extension range of motion without pain TMD 3.5 finger breadths Mallampati Score 2 Dentition: edentulous, full upper and lower dentures Lungs: normal respiratory effort. Good air movement, clear throughout to auscultation, no adventitious breath sounds Cardiac: regular rate and rhythm, no murmurs noted Carotid arteries: negative bruit bilat Lab Results Anesthesia Preop Results Results Anesthesia Widget: WBC 6.93 K/ul (4.8-10.8) 01/19/24 Hgb 16.3 g/dl (14.0-18.0) 01/19/24 Hct 47.8 % (42.0-52.0) 01/19/24 Plt 209 K/uL (130-400) 01/19/24 Na 141 mmol/L (136-145) 01/19/24 K 4.6 mmol/L (3.5-5.1) 01/19/24 Cl 104 mmol/L (98-107) 01/19/24 CO2 33 mmol/L (21-32) H 01/19/24 BUN 14 mg/dl (6-23) 01/19/24 Creat 1.16 mg/dl (0.6-1.4) 01/19/24 Glucose Level 100 mg/dl (70-99(Fasting)) H 01/19/24 PT 11.0 Seconds (9.0-12.0) 01/19/24 PTT 29 Seconds (21-31) 01/19/24 INR 1.0 (0.9-1.1) 01/19/24 Urine Color Yellow 01/19/24 Urine Appearance Clear (Clear) 01/19/24 Urine pH 6.0 (4.5-7.5) 01/19/24 Urine Specific Oil Trough 1.012 (1.000-1.030) 01/19/24 Urine Protein Negative (Negative) 01/19/24 Urine Glucose (UA) Negative (Negative) 01/19/24 Urine Ketones Negative (Negative) 01/19/24 Urine Blood Negative (Negative) 01/19/24 Urine Nitrite Negative (Negative) 01/19/24 Urine Bilirubin Negative (Negative) 01/19/24 Urine Urobilinogen Negative (Negative) 01/19/24 Urine Leukocyte Esterase Negative (Negative) 01/19/24 Blood Type O Negative 01/19/24 Antibody Screen NEGATIVE 01/19/24 Testing Electrocardiogram Date: 01/19/24 NSR, rate 64 bpm Chest X-Ray Date: 01/19/24 No acute process.
[~2024-02-07 08:40] MED LIST changes: -ATEN50TA8 PO; +BUPIVACAINE 0.25% PF 30 ML VIAL ONE; +BUPIVACAINE 0.5 % 5 MG/1 ML PF 10ML VIAL ONE; -CIPR-255 PO; -CLC100 PO; -COEN1CAP28 PO; +DEXAMETHASONE SOD INJ 4 MG/ML VIAL ONE; -DOXA4TAB2 PO; +EPINEPHrine INJ 1 MG/ML AMP ONE; -EZET10TA47 PO; -GABA600T PO; +MIDAZOLAM HCL 1 MG/ML 2ML VIAL ONE; -MULT-506 PO; -OMEP20TA PO; +PROPOFOL IV EMULSION 10 MG/ML 20 ML VIAL IV ONE
[2024-02-07] MEDS: LR 60ML/HR IV SCH (09:38)
[2024-02-07] MEDS: LR 500ML BOLUS, THEN 15ML/HR IV SCH (09:38)
[2024-02-07] MEDS ORDERED: ePHEDrine sulfate 50 MG/ML AMP IV PRN (09:49)
[2024-02-07] MEDS ORDERED: ONDANSETRON INJ 2 MG/ML 2 ML VIAL IV PRN ×2 (09:49→15:45)
[2024-02-07] MEDS ORDERED: ATROPINE SULFATE 0.1 MG/ML 10ML SYR IV PRN (09:49)
--- NOTE | 2024-02-07 10:35 | History & Physical Bridge Note ---
Date of Service February 07, 2024 History & Physical Bridge Note I have examined the patient, reviewed the History & Physical and in the interval since the performance of the History & Physical I have noted the following changes of clinical significance: no changes noted
[2024-02-07] MEDS: TRANEXAMIC ACID 1,000 MG **IV Pre-op IV SCH (10:58)
--- OUTSIDE RECORDS SUMMARY | 2024-02-07 11:20 | External Medical Summary | Continuity of Care Document ---
Author Name Unknown Organization [facility] [id number] [address] [place] [phone] Care Team Providers Care Soup Mixer Name Role Phone Jose Olmstead Primary Care Physician [phone] Encounter [facility] [phone] Date(s): 02/02/24 - 02/02/24 [facility] 0 [facility] [address] [facility] [address] [facility] [address] [place] [address] [phone] Encounter Diagnosis Pre-op exam(Discharge Diagnosis) - 02/02/24 OA (osteoarthritis) of knee(Discharge Diagnosis) - 02/02/24 HTN (hypertension)(Discharge Diagnosis) - 02/02/24 Hyperlipidemia(Discharge Diagnosis) - 02/02/24 Discharge Disposition: Home or Self Care Attending Physician: DO Goss Gretchen Elizabeth Referring Physician: MD Celso, Vito A Allergies, Adverse Reactions, Alerts Substance Reaction Severity Status tetanus toxoid Active Adhesive bandage 1 any products that co ntain rubber blisters and sick Active Latex Rash Mild Active 1any products with rubber Immunizations Given and Recorded Vaccine Date Status Refusal Reason influenza virus vaccine, inactivated 07/28/23 Give n influenza virus vaccine, inactivated 08/21/20 Give n influenza virus vaccine, inactivated 08/19/14 Give n influenza virus vaccine, inactivated 08/28/12 Give n SARS-CoV-2 mRNA (xdiujebsgnx-whtb-bfb) 1 03/06/22 Recorded SARS-CoV-2 (COVID-19) mRNA BNT-162b2 vax 2 08/18/21 Recorded SARS-CoV-2 (COVID-19) mRNA BNT-162b2 vax 01/28/21 Recorded SARS-CoV-2 (COVID-19) mRNA BNT-162b2 vax 01/07/21 Recorded zoster vaccine, inactivated 05/13/20 Given pneumococcal 23-valent vaccine 04/19/19 Given pneumococcal 13-valent vaccine 3 07/23/17 Recorded pneumococcal 13-valent vaccine 03/16/17 Given influenza virus vaccine, H1N1 4 12/08/09 Recorded 1Result Comment: 2022-07-27: Historical information-source unspecified 2Result Comment: 2022-07-27: Historical information-source unspecified 3Result Comment: 2022-07-27: Historical information-source unspecified 4Result Comment: 2022-07-27: Historical information-source unspecified Medications aspirin 81 mg oral tablet Start: 02/20/18 10:52:00, 1 tab, PO, Daily Start Date: 02/20/18 Status: Ordered diphenhydrAMINE Start: 12/02/22 11:28:00 EST, at HS PRN Start Date: 12/02/22 Status: Ordered DULoxetine 20 mg oral delayed release capsule Start: 12/20/23 11:00:00 EST, 1 cap, PO, Daily, Disp# 90 cap, Refills: 3, Pharmacy: [facility] [id number] Start Date: 12/20/23 Status: Ordered famotidine 40 mg oral tablet See Instructions, Disp# 180 tab, Refills: 0, Take 1 tablet by mouth twice daily, Pharmacy: [id number] Start Date: 10/30/21 Status: Ordered gabapentin 600 mg oral tablet Start: 07/28/23 12:59:00 EDT, 1 tab, PO, tid, Disp# 270 tab, Refills: 3, Pharmacy: [facility] Start Date: 07/28/23 Stop Date: 07/22/24 Status: Ordered ketoconazole 2% topical cream Start: 12/20/23 15:15:00 EST, See Instructions, Disp# 60 g, Refills: 0, APPLY CREAM TOPICALLY TO TINEA IN GROIN TWICE DAILY FOR 2 WEEKS, Pharmacy: [id number] Start Date: 12/20/23 Status: Ordered Metoprolol Succinate ER 50 mg oral tablet, extended release Start: 02/02/24 14:12:00 EDT, 1 tab, PO, Daily, Disp# 30 tab, Refills: 2, Pharmacy: [place] [id number] Start Date: 02/02/24 Stop Date: 05/02/24 Status: Ordered multivitamin Start: 08/19/14 12:56:00, 1 tab, PO, Daily Start Date: 08/19/14 Status: Ordered omeprazole 40 mg oral delayed release capsule Start: 12/20/23 11:00:00 EST, 1 cap, PO, Daily, Disp# 90 cap, Refills: 0, Pharmacy: [id number] Start Date: 12/20/23 Status: Ordered pravastatin 40 mg oral tablet Start: 12/07/23 7:57:00 EST, 1 tab, PO, Daily, Disp# 90 tab, Refills: 0, Pharmacy: [id number] Start Date: 12/07/23 Status: Ordered Mental Status 02/02/24 Barriers to Learning one year None evide nt Mandatory Health Literacy Documentation Yes Health Literacy Communication Barriers N ever Primary Language Hungarian Problem List Condition Confirmation Course Effective Dates Status Health Status Informant Arthritis Confirmed Active Back pain Confirmed Active Cataract Confirmed Active Disseminated idiopathic skeletal hyperostosis Confirmed Active Exogenous hypertriglyceridemia Confirmed Active GERD Confirmed Active Hearing loss in right ear Confirmed Active History of acoustic neuroma Confirmed Active History of prostate cancer Confirmed Active S/P total knee arthroplasty Confirmed Active Hyperlipidemia Confirmed Active IT band syndrome Confirmed Active Organic impotence Confirmed Active Multiple joint pain Confirmed Active OA (osteoarthritis) of knee Confirmed Active Pain of left calf Confirmed Active Patellar tendinitis Confirmed Active Peripheral neuropathy Confirmed Active Premature atrial contraction Confirmed Active Swelling of calf Confirmed Active Diagnosis Diagnosis Type Effective Dates Health Status Clinical Service Informant Pre-op exam Discharge Diagnosis 02/02/24 OA (osteoarthritis) of knee Discharge Diagnosis 02/02/24 HTN (hypertension) Discharge Diagnosis 02/02/24 Hyperlipidemia Discharge Diagnosis 02/02/24 Procedures Procedure Date Related Diagnosis Body Site Status Chest X-ray 1 04/21/23 Completed Total prosthetic arthroplast y of left knee 12/28/22 Completed X-ray of thoracic spine 2 12/17/22 Completed Total knee replacement 2022 Completed DEXA of hip and spine 4 09/27/22 C ompleted Esophagogastroduodenoscopy 5 12/21/21 Completed Upper GI (gastrointestinal) endoscopy 6 12/21/21 Completed MRI of brain 7 07/29/21 Completed Chest X-ray 8 06/15/21 Completed Colonoscopy 9, 10 01/14/20 Complet ed Bilateral blepharoplasty of upper eyelids 11/28/19 Completed Abdominal aortic aneurysm screening 11 04/23/[address] of neck and thorax 12 03/21/18 Completed MRI of lower leg with contrast 13 12/30/15 Completed Chest x-ray 14 06/20/15 Completed Colonoscopy 15, 16, 17 09/12/14 Co mpleted colonoscopy 18, 19 08/05/11 Comple alton US scan of carotid 20 03/08/07 Com pleted MRI of cervical spine 21 03/30/06 Completed MRI of thoracic spine 22 03/30/06 Completed EMG - Electromyography 23 01/14/05 Completed appendix Completed Broken arm 24 Completed gamma knife radiation 25 Completed Heart catherization 26 Co mpleted L Laser surgery 27 Comple laton parathyroid removed 28 Co mpleted prostate biopsy 29 Comple alton vasectomy Completed [facility] No acute abnormalities, no evidence on pneumonia. 2Impression: Degenerative changes as above without acute fracture or subluxation. 3left 4Impression: AP spine T-score 2.3 Femur neck left T-score -0.6 Femur neck right T-score -0.2 Femur total left T-score 0.3 Femur total right T-score 0.4 Z-score 0.8 5EGD short segment Barretts suspected bx, 6Impression: -Esophageal mucosal changes suspcious for short - segment Smith's esophagus. Biopised. -Esophagogastric landmakrs identified. - Normal stomach. - Normal examined duodenum. - The examination was otherwise normal. 7No acute intracranial abnormality 8no acute cardiopulmonary findings. 9repeat colo 5 years 10COLO to cecum, diverticulosis, hemorrhoids.. 11Normal caliber abdominal aorta 12On soft tissue windows, normal thyroid and thoacic inlet. Persistent subcutaneous centrally hypodense nodule in the right posterior back intimately assoicated with the cutis, likely sebaceous cyst. No axillary, supraclavicular, or mediastinal lymphadenopathy. Evaluation of the lenard limited without IV contrast. Normal aorta, Normal heart size. Coronary artery calficication. No pericardial or pleural effusion. Upper abdomen normal. 13Minor subcutaneous edema within the posterior medial calf. No bladder abnormalities identified. No pathological masses, No MRI evidence of muscle tear. 14No acute process. 15COLONOSCOPY to cecum-- rectal polyp hot bx, rectal ulcer bx, sigmoid diverticulosis, internal hemorrhoids 16repeat colonoscopy 5 years. 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 6 mm cecal polyp removed, diverticulosis, hemorrhoids. No path available. 19colon polyps, was instructed to repeat in 3 years. 20Consistent with no hemodynamically significant stenosis of the right and left internal carotid artery. 211. Small focal broad-based posterior and right parasagittal disc protrusion at C4-C5. There is mildindentation of the cervical cord and narrowing of the central canal at this level. 2. Mild spondylosis elsewhere in the cervical spine and cervicothoracic junction as described. 22Mild to moderate spondylosis in the dorsal spine as described. 23Sensory conduction studies performed on the left sural, left superficial peroneal, and both medial plantar nerves reveal an unobtainable medial plantar sensory nerve action potentials and are otherwise normal. Motor conduction studies and F wave performed on the peroneal on the left peroneal and left posterior tibial nerves are normal. Dorian Do MD 24right arm age 11 years 25for acoustic neuroma in 2004; at [facility]; has not had a MRI in 2 years. [id number]; no disease 27left cataract 28not all, one or two removed 29two, first with Dr. Espinal; second with [facility] (several years ago) Vital Signs Most recent to oldest [Reference Range]: 1 2 Patient Weight 103.1 kg (02/02/24 1:35 PM) Heart Rate 52 bpm (02/02/24 1:35 PM) Blood Pressure 150/84mmHg (02/02/24 1:58 PM) 160/100mmHg (02/02/24 1:35 PM) Cuff Pulse Pressure 60 mmHg (02/02/24 1:35 PM) Social History Social History Type Response Smoking Status Never smoked cigaret lizzette Sex Male Patient Care team information Care Team Personnel Name: TAWANDA Huffman Kimberly A Position: Physician Asst Exmpt - Family Med Member Role: Lifetime Relationship Address: Address: [address] [place] [address] [place] Name: MD Aysha, Jose Holt Position: Physician - Family Med Member Role: Primary Care Provider Address: Address: [address] [address] [place] Care Team Related Persons Name: SERGEI PADILLA Address: home [address] [place] [phone]
--- OUTSIDE RECORDS SUMMARY | 2024-02-07 11:21 | External Medical Summary | Continuity of Care Document ---
Author Name Unknown Organization [address] [facility] [place] [id number] Address [address] [place] [id number] Care Team Providers Care Bearing Ring Assembler Name Role Phone Jose Olmstead Primary Care Physician [phone] Encounter [facility] [id number] Date(s): 01/19/24 - 01/19/24 [place] [address] [facility] [address] [facility] [address] [address] Encounter Diagnosis OA (osteoarthritis) of knee(Discharge Diagnosis) - 01/19/24 S/P total knee arthroplasty(Discharge Diagnosis) - 01/19/24 Discharge Disposition: Home or Self Care Attending Physician: MD Celso, Vito A Allergies, Adverse [...] vaccine, inactivated 08/28/12 Give n SARS-CoV-2 mRNA ([id number]) 1 03/06/22 Recorded SARS-CoV-2 (COVID-19) mRNA BNT-162b2 [...] Daily, Disp# 90 cap, Refills: 3, Pharmacy: [place] [id number] Start Date: 12/20/23 Status: Ordered famotidine 40 mg oral tablet See Instructions, Disp# 180 tab, Refills: 0, Take 1 tablet by mouth twice daily, Pharmacy: [place] [id number] Start Date: 10/30/21 Status: Ordered gabapentin 600 mg oral tablet Start: 07/28/23 12:59:00 EDT, 1 tab, PO, tid, Disp# 270 tab, Refills: 3, Pharmacy: [id number] Start Date: 07/28/23 Stop Date: 07/22/24 Status: Ordered ketoconazole 2% topical cream Start: 12/20/23 15:15:00 EST, See Instructions, Disp# 60 g, Refills: 0, APPLY CREAM TOPICALLY TO TINEA IN GROIN TWICE DAILY FOR 2 WEEKS, Pharmacy: [facility] Start Date: 12/20/23 Status: Ordered Metoprolol Succinate ER 25 mg oral tablet, extended release Start: 01/03/24 14:08:00 EST, 1 tab, PO, Daily, Disp# 90 tab, Refills: 0, Pharmacy: [place] [id number] Start Date: 01/03/24 Status: Ordered multivitamin Start: 08/19/14 12:56:00, 1 tab, PO, Daily Start Date: 08/19/14 Status: Ordered omeprazole 40 mg oral delayed release capsule Start: 12/20/23 11:00:00 EST, 1 cap, PO, Daily, Disp# 90 cap, Refills: 0, Pharmacy: [id number] Start Date: 12/20/23 Status: Ordered pravastatin 40 mg oral tablet Start: 12/07/23 7:57:00 EST, 1 tab, PO, Daily, Disp# 90 tab, Refills: 0, [id number] Start Date: 12/07/23 Status: Ordered Mental Status 01/19/24 Barriers to Learning one year None evide nt Mandatory Health Literacy Documentation Yes Health Literacy Communication Barriers N ever Primary Language Icelandic Problem List Condition Confirmation Course Effective Dates [...] Effective Dates Health Status Clinical Service Informant OA (osteoarthritis) of knee Discharge Diagnosis 01/19/24 S/P total knee arthroplasty Discharge Diagnosis 01/19/24 Procedures Procedure Date Related Diagnosis Body Site [...] Co mpleted L Laser surgery 27 Comple alton parathyroid removed 28 Co mpleted prostate biopsy 29 Comple al[place] vasectomy [facility] No acute abnormalities, no evidence on [...] acute intracranial abnormality 8no acute cardiopulmonary findings. 9COLO to cecum, diverticulosis, hemorrhoids.. 10repeat colo 5 years 11Normal caliber abdominal aorta 12On soft tissue [...] years 25for acoustic neuroma in 2004; at [facility]; has not had a MRI in 2 years. [id number]; no disease 27left cataract 28not all, one or two removed 29two, first with Dr. Espinal; second with [facility] (several years ago) Vital Signs Most recent to oldest [Reference Range]: 1 Height 176 cm (01/19/24 9:35 AM) Patient Weight 104 kg (01/19/24 9:35 AM) Body Mass Index 33.57 kg/m2 (01/19/24 9:35 AM) Temperature [36.5-37.9 DegC] 36.4 DegC *LOW* (01/19/24 9:35 AM) Heart Rate 82 bpm (01/19/24 9:35 AM) Blood Pressure 140/70mmHg (01/19/24 9:35 AM) Cuff Pulse Pressure 70 mmHg (01/19/24 9:35 AM) Social History Social History Type Response Smoking Status Never smoked cigaret lizzette Sex Male Ortho Outpt Note * MD Celso, Vito A: MODIFY MD Celso, Vito A: MODIFY, PERFORM Ash Travis: PERFORM Event Display: Ortho Outpt Note Authored Date: [id number] Name:LISSETTE BECERRIL Patient Number:[id number] :1950 Date of Service:01/19/2024 CHIEF COMPLAINT: Follow-up s/p left TKA, DOS 12/28/22. HPI: Lissette Becerril is a 72-year-old male who I am following for the above-noted left TKA on 12/28/22 and his right knee pain. Patient notes that his left knee is doing well with no complaints. His right knee is progressing and he is prepared to have his knee replaced. He had some irritation from the bandage adhesive on his skin with his last TKA. He has history of polyneuropathy. He has difficulty vaginallywith movements in both feet. His pain is a 3/10 today. ROS: Refer to the HPI. PHYSICAL EXAM: Focusing on the patient'sbilateral lower extremity: 2+ DP pulse Sensation diminished secondarily to neuropathy, slightly improved sensation on the lateral aspect to left toes. Motor to the gastroc soleus, tibialis anterior, and EHL is 5/5. Able to perform straight leg raise. + Medial and lateral joint line tenderness on right + Medial and lateral facet tenderness on right Right kneeligamentous examination exhibits: Stable Anton 0 mm anterior translation and firm endpoint Posterior drawer stable Varus stress at5 and 30 stable Valgus stress at5 and 30 stable NoEffusion ROM Left: 0 to 115 ROM right:5 to 110 RADIOGRAPHY: I obtained and personally interpreted OA series Bilateral hips to ankles, bilateral AP standing, sunrise, and lateral views of the right knee which showsmedial joint space narrowing that is near bone on bone, sclerosis, subchondral cysts, and marginal osteophytes. There is 8 varus alignment on the right and 1 varus alignment on the left. Theleft knee cemented componentsremain in good position with no evidence of loosening. IMPRESSION: 72-year-old male 1) Right knee OA 2) 1 year s/pleft TKA, DOS 12/28/22, doing well. GOAL: To increase left knee ROM. PLAN: - After a lengthy discussion with the patient today regarding my above clinical findings, as well as reviewing their imaging with them, their treatment options of conservative management with injections, activity modifications versus surgical intervention with a knee replacement were discussed. - The risk and benefits of each were discussed. The risks of surgery included but not limited to: Infection, bleeding, nerve damage, continued pain, failure of hardware, deep vein thrombosis, PE, stroke, [place], and . - They would like to proceed with surgery and informed consent was signed for right TKA. - Will obtain medical clearance prior to proceeding with surgery. - Patient will follow up in 6 weeks after the surgery for x-rays of both knees - Follow up with pre-op appointments, will plan on using Zipline; ekaterina not use the Silverlonpostoperatively. The patient understood all my instructions and explanation; all their questions were satisfactorilyaddressed. ATTESTATION: I, Ash Travis, scribing forand in the presence of, Vito Houston, on this date,01/19/2024 09:42:58. I, Dr. Houston, saw and examined the patient with Ash Travis acting as my scribe. I reviewed thenote and agree with the documented findings and the plan of care I developed. Electronic Signature on File Electronically Reviewed/Signed by: Ash Travis Author Signature Dt/Tm:01/19/2024 09:59 AM Electronically Reviewed/Signed by: Vito Houston MD Cosigner Signature Dt/Tm: 01/19/2024 10:39 AM [facility] Test Engine Operator Department of Orthopaedics and Rehabilitation [facility] [address], [place] [address] DS Patient Care team information Care Team Personnel Name: TAWANDA Huffman Kimberly A Position: Physician Asst Exmpt - Family Med Member Role: Lifetime Relationship Address: Address: [facility] [address] [address] [place] Name: MD Olmstead Joseph P Position: Physician - Family Med Member Role: Primary Care Provider Address: Address: [address] [address] [place] Care Team Related Persons Name: BECERRILSERGEI Address: [address] [phone]
[2024-02-07] MEDS: ceFAZolin 2000MG 2,000 MG/15 ML SYR IV SCH ×2 (11:25→21:01)
[2024-02-07] MEDS ORDERED: PROPOFOL IV EMULSION 10 MG/ML 20 ML VIAL IV ONE ×4 (12:11→12:13)
[2024-02-07] MEDS ORDERED: PHENYLEPHRINE HCL 10 MG/ML VIAL ONE (12:14)
[2024-02-07] MEDS: TRANEXAMIC ACID 1,000 MG **IV Intra-op IV SCH (13:19)
[2024-02-07] MEDS: ROPIV 0.5% 246mg, Ketorolac 30mg, EPINEPHrine 0.5mg in NSS INFIL ONE (13:26)
--- NOTE | 2024-02-07 13:54 | Operative Report ---
Post Operative Report Pre & Post Diagnosis Operation Date: 02/07/24 10:20 Pre-Op Diagnosis: Right Knee Osteoarthritis Post-Op Diagnosis: Right Knee Osteoarthritis I identified the patient and participated in the time-out.: Yes Procedure Operation Date: 02/07/24 10:20 Actual Procedures p Right Total knee replacement, imageless computer assisted navigation - Vito Houston MD Surgeon Vito Houston MD Plaster Caster Michele Mccray PA-C (No fellow avail) Estimated Blood Loss 100 Findings See Below Examined Under Anesthesia: ROM -- There was 5 degrees to 125 degrees of flexion Ligamentous examination -- revealed stable Anton, posterior drawer, varus and valgus stress at 5 and 30 degrees. [place]erbridge Grade IV changes of medial compartment, grade III changes Patellofemoral compartment, and grade II-III changes lateral compartment. Marginal and intercondylar osteophytes. Noted synovitis in the suprapatellar pouch. Fluids 500 cc Specimens Right knee contents Anesthesia Type MAC Spinal Regional Complications none Indications This is a 73-year-old male who has clinical and radiographic findings consistent with osteoarthritis of the a right knee. I recommended that a right total knee replacement be performed. The patient understands the risks of surgery, which include but not limited to: bleeding, infection, re-operation, damage to nerves and arteries, continued knee pain, knee stiffness, DVT, and . The patient understands all of these instructions and explanations, all of his questions have been satisfactorily addressed and the patient has elected to proceed. I nformed consent was signed. Description of Procedure IMPLANTS: 1. Femur: Triathlon #6 Right PS. 2. Tibia: Triathlon #6 [place]. 3. Insert: Triathlon #6 x 11 mm PS X3 poly. 4. Patella: Triathlon A38 x 11 mm X3 poly. 5. Palacos cement. Michele Mccray PA-C is assisting with positioning, retracting, and closure due to fellow not available. Procedure: The patient was taken to the Operating Room and placed in the supine position after spinal and adductor canal nerve block was administered. My initials and a multidisciplinary time-out were used to identify the right leg as the correct operative limb. A tourniquet was placed high in the thigh. Prior to the incision, 2 grams of intravenous Ancef were given. The right leg was then prepped and draped in a standard sterile fashion. An Esmarch was used to exsanguinate the leg and the tourniquet was inflated to 250 mmHg. The planned mid-line 20 cm incision was created exposing the extensor mechanism. The medial parapatellar arthrotomy was made and the patella was everted. The patella was addressed first. It was prepared by reaming from 25 mm down to 14 mm. An A38 button was found to fit best. The peg holes were made in the standard fashion. The femur was addressed next and using computer assisted OrthoAlign with 3 degrees of flexion and 0 degrees of valgus, removing 10 mm in the standard fashion for the distal cut. The cut was made and the 4-in-1 cutting block for a size 6 femur was placed. These cuts and the cuts to place the box were made in the standard fashion. Our attention was then drawn to the tibia cut with using imageless computer assisted OrthoAlign, taking 2 mm from the medial low side. There was sufficient extension and flexion gap to fit a 11 mm spacer. A #6 Tibial baseplate fit well. A trial with a 11 mm spacer showed excellent stability in both flexion and extension, with good ligament balance, and thumbs free patellar tracking. Range of motion of 0-130 degrees. The tibial baseplate was prepped for the keel and stem. All components were removed. All surfaces were copiously irrigated prior to placement of the components. The femoral component followed by Tibial baseplate were cemented in place and a 11 mm trial placed. Next, the patellar button was placed using the same cement. Once the cement had cured, the range of motion and stability were unchanged. The 11 mm X3 poly was placed. Again, the range of motion and stability were unchanged. The extensor mechanism was closed with 1-0 Vicryl and 0 Stratafix with the knee bent approximately 60 degrees in a standard fashion. The peritenon and deep fascia was closed with 2-0 Vicryl. The subcutaneous layer was closed with 3-0 Vicryl. The skin was closed with Zipline and shield. The limb was cleaned and dried. 4x4 dressing was placed over top followed by ABDs, sterile Webril, and a foot to thigh Jose Juan bandage. The patient was then transferred to the Recovery Room in stable condition. The sponge and needle counts were correct. POST-OP INSTRUCTIONS: The patient will be WBAT. The patient will be admitted to the hospital. Complete 24-hour course antibiotics. Labs will be obtained during the stay. DVT prophylaxis will included aspirin for 6 weeks, TEDs, and mechanical foot pumps. The dressing will be changed postop day #2-3 and covered with a Silverlon dressing. I attest to the content of the Intraoperative Record and any orders documented therein. Any exceptions are noted below.
--- NOTE | 2024-02-07 13:54 | Post Operative Brief Note ---
Immediate Post Op Note v1 Date of Surgery February 07, 2024 Pre & Post Diagnosis Operation Date: 02/07/24 10:20 Pre-Op Diagnosis: Right Knee Osteoarthritis Post-Op Diagnosis: Right Knee Osteoarthritis I identified the patient and participated in the time-out.: Yes Procedure Operation Date: 02/07/24 10:20 Actual Procedures p Right Total Knee Arthroplasty(Right) - Vito Houston MD Surgeon Vito Houston MD Jet Wiper Michele Mccray PA-C (No fellow avail) Estimated Blood Loss 100 Findings Consistent with Post-Op Diagnosis Fluids 500 cc Specimens Right knee contents Anesthesia Type MAC Spinal Regional Complications none
--- NOTE | 2024-02-07 14:04 | Operative Report ---
Post Operative Report Pre & Post Diagnosis Operation Date: 02/07/24 10:20 Pre-Op Diagnosis: Right Knee Osteoarthritis Post-Op Diagnosis: Right Knee Osteoarthritis I identified the patient and participated in the time-out.: Yes Procedure Operation Date: 02/07/24 10:20 Actual Procedures p Right Total Knee Arthroplasty(Right) - Vito Houston MD Surgeon Vito Houston M.D. Organizational Development Consultant Michele Mccray PA-C (No fellow avail) Estimated Blood Loss 100 Findings Consistent with Post-Op Diagnosis DJD right knee Specimens bone and soft tissue Anesthesia Type MAC Spinal Regional Description of Procedure Patient was taken to the operating room, placed under spinal anesthesia, with peripheral nerve block. Time out performed, prepped and draped in routine sterile fashion. Given 2gm IV ancef and 1gm IV TXA preoperatively. I was present during the entire case and assisted with tissue retraction, trialing of implants, hemostasis, implantation of hardware, closure and dressings. Please see Dr. Houston's operative report for further detail. Patient was awakened and taken to the recovery room in stable condition. I attest to the content of the Intraoperative Record and any orders documented therein. Any exceptions are noted below.
[2024-02-07] MEDS: fentaNYL citrate PF 100 MCG/2 ML VIAL IV PRN (14:15)
--- NOTE | 2024-02-07 14:55 | Anesthesiology Progress Note ---
Date of Service February 07, 2024 Anesthesia Post Procedure Vital Signs Vital Signs: Temp Pulse Resp BP Pulse Ox O2 Del Method O2 Flow Rate 02/07/24 14:50 36.5 C 70 13 114/73 95 Room Air 02/07/24 14:40 73 21 121/67 98 Room Air 02/07/24 14:30 72 22 116/75 98 Room Air 02/07/24 14:20 75 16 142/79 H 94 Room Air 02/07/24 14:10 81 23 133/101 H 96 Room Air 02/07/24 14:01 36.3 C L 80 18 135/80 97 Oxymask 6 02/07/24 09:12 36.6 C 70 20 172/102 H 98 Room Air Pain Intensity Back: Pain Intensity: 3 Transfer of Care Handoff Completed per policy Notes Mental Status: alert / awake / arousable Patient Amnestic to Procedure: Yes Nausea / Vomiting: adequately controlled Pain: adequately controlled Airway Patency, RR, SpO2: stable & adequate BP & HR: stable & adequate Hydration State: stable & adequate Neuraxial Anesthesia: was administered and sensory block is resolving Anesthetic Complications: no major complications apparent
[2024-02-07] MEDS ORDERED: METOCLOPRAMIDE HCL INJ 5 MG/ML 2 ML VIAL IV PRN (15:45)
[2024-02-07] MEDS ORDERED: bisacodyL 10 MG SUPP PR PRN (15:45)
[2024-02-07] MEDS ORDERED: diphenhydrAMINE Capsule 25 MG CAP PO PRN (15:45)
[2024-02-07] MEDS ORDERED: TAMSULOSIN HCL 0.4 MG CAP PO PRN (15:45)
[2024-02-07] MEDS ORDERED: HYDROmorphone INJ 1 MG/ML SYRINGE IV PRN (15:45)
[2024-02-07] MEDS ORDERED: MAGNESIUM HYDROXIDE SUSP 30 ML UDC PO PRN (15:45)
[2024-02-07] MEDS ORDERED: NALOXONE HCL 0.4 MG/1 ML VIAL/CARP IV PRN (15:45)
[2024-02-07] MEDS: SODIUM CHLORIDE 0.9% 1,000 ML IV SCH (16:14)
[2024-02-07] MEDS: ASCORBIC ACID 500 MG TAB PO SCH (16:41)
[2024-02-07] MEDS: FERROUS GLUCONATE 324 MG TAB PO SCH (16:41)
--- NOTE | 2024-02-07 16:41 | XRay Report ---
XR knee RT 1 or 2V routine CLINICAL HISTORY: Surgical Post Op TECHNIQUE: 2 views of the right knee were obtained. Comparison: Comparison is made to knee radiograph 01/19/2024 FINDINGS: Patient is status post total knee arthroplasty with expected postsurgical changes including soft tiss ue swelling and subcutaneous emphysema. No periarticular lucency or hardware fracture is seen. IMPRESSION: Expected postoperative appearance status post placement of total knee arthroplasty. ACT 112: Negative or not required by law. Electronically signed by: Juan A Gonzalez M.D. 02/07/2024 4:40 PM
--- NOTE | 2024-02-07 17:03 | Orthopedic Progress Note ---
Date of Service February 07, 2024 Assessment & Plan (1) Osteoarthritis, knee: Plan: POD #0 s/p R TKA, doing as well as expected. Resume diet. WBAT with walker. OOB to chair. Continue pain control. Check labs tomorrow. DVT prophylaxis: TEDs 3 weeks, foot pumps while in hospital, Xeralto 20 mg daily for 6 weeks, start 02/07/24 am due to spinal. PT/OT. D/C planning. Present on Admission?: Yes Admission and Anticipated Discharge Date Admission Date: February 07, 2024 Subjective Doing well. Physical Exam Physical Exam: RLE: BCR < 2 sec. Sensation to light touch unchanged distally. Wiggling ankle and toes. Calf soft and non-tender. Able to preform a straight leg raise. Dressing is clean, dry, intact. Results & Data Vital Signs (Past 12 Hours) Vital Signs Temp Pulse Pulse Resp BP Pulse Ox O2 Del Method 02/07/24 16:39 36.6 C 68 16 136/81 96 Room Air 02/07/24 16:04 36.5 C 70 16 123/71 93 Room Air 02/07/24 15:30 36.6 C 72 16 118/76 93 Room Air 02/07/24 15:20 67 15 107/73 96 Room Air 02/07/24 15:05 71 15 113/65 95 Room Air 02/07/24 14:50 36.5 C 70 13 114/73 95 Room Air 02/07/24 14:40 73 21 121/67 98 Room Air 02/07/24 14:30 72 22 116/75 98 Room Air 02/07/24 14:20 75 16 142/79 H 94 Room Air 02/07/24 14:10 81 23 133/101 H 96 Room Air 02/07/24 14:01 36.3 C L 80 18 135/80 97 Oxymask 02/07/24 09:12 36.6 C 70 20 172/102 H 98 Room Air O2 Flow Rate 02/07/24 16:39 02/07/24 16:04 02/07/24 15:30 02/07/24 15:20 02/07/24 15:05 02/07/24 14:50 02/07/24 14:40 02/07/24 14:30 02/07/24 14:20 02/07/24 14:10 02/07/24 14:01 6 02/07/24 09:12 Laboratory Results Impressions Knee X-Ray 02/07/24 14:08 XR knee RT 1 or 2V routine CLINICAL HISTORY: Surgical Post Op TECHNIQUE: 2 views of the right knee were obtained. Comparison: Comparison is made to knee radiograph 01/19/2024 FINDINGS: Patient is status post total knee arthroplasty with expected postsurgical changes including soft tissue swelling and subcutaneous emphysema. No periarticular lucency or hardware fracture is seen. IMPRESSION: Expected postoperative appearance status post placement of total knee arthroplasty. ACT 112: Negative or not required by law. Electronically signed by: Juan A Gonzalez M.D. 02/07/2024 4:40 PM
--- NOTE | 2024-02-07 20:30 | Hospitalist Consultation ---
Date of Consultation February 07, 2024 Assessment & Plan (1) Osteoarthritis of right knee: Assessment: 1. End-stage osteoarthritis right knee status post right total knee arthroplasty. Postop day 0. 2. History of hypertension 3. History of gastroesophageal reflux disease. 4. Depression continue home medications. Plan: As described above. Please refer to orders for the. Continue to go participate in the care of Mr. Becerril as he continues to convalesce his right total knee arthroplasty will continue to follow with you daily. Morning labs are ordered. History of Present Illness Reason for Consultation: Medical management status post right total knee arthroplasty postop day 0. Attending Physician: Vito Houston MD History of Present Illness This is a pleasant 73-year-old male who presented to the hospital this morning to undergo elective right total knee arthroplasty with orthopedics. The patient underwent the procedure and tolerated it well per report, the hospitalist service was consulted for Co. medical management during his stay. Allergies Allergy/AdvReac Type Severity Reaction Status Date / Time adhesive Allergy Intermediate hives Verified 02/07/24 09:09 latex Allergy Mild RASH AFTER Verified 02/07/24 09:09 LONG EXPOSURE tetanus immune globulin Allergy Mild UNSURE, Verified 02/07/24 09:09 POSS RASH Home Medications Medication Instructions Recorded Confirmed Type famotidine 40 mg tablet 40 mg PO QAM 08/22/20 02/07/24 History gabapentin 800 mg tablet 800 mg PO TID 08/22/20 02/07/24 History metoprolol succinate 25 mg 25 mg PO QAM 08/22/20 02/07/24 History tablet,extended release 24 hr pravastatin 40 mg tablet 40 mg PO HS 08/22/20 02/07/24 History wdxttjb-ykromsizaulqt-mabjjnvz 250 2 tab PO Q12H PRN Migraine Headache 05/11/21 02/07/24 History mg-250 mg-65 mg tablet (Excedrin Migraine) diphenhydramine HCl 50 mg capsule 50 mg PO HS PRN Sleep 05/11/21 02/07/24 History (Banophen) oxycodone 5 mg tablet 5 - 10 mg (1 - 2 x 5 mg) PO Q4H 12/29/22 02/07/24 Rx PRN pain #20 tabs aspirin 81 mg tablet 81 mg PO HS 01/12/24 02/07/24 History duloxetine 20 mg capsule,delayed 20 mg PO QAM 01/12/24 02/07/24 History release sprinkle lutein 20 mg-zeaxanthin 1,000 mcg 1 cap PO QAM 01/12/24 02/07/24 History capsule omeprazole 40 mg capsule,delayed 40 mg PO QPM 01/12/24 02/07/24 History release Patient History Medical History (Updated 02/07/24 @ 20:28 by Reyes Manrique, PhD, DO) Hx of deep venous thrombosis 2022- was on Xarelto x1 month then discontinued Parathyroid disorder s/p parathyroidectomy secondary to hypercalcemia Premature atrial contraction Per records Prostate cancer 2018 s/p prostatectomy 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 Kraus 10/02/2020 LMA#5 Hx of blepharoplasty Hx of parathyroidectomy left side H/O cataract removal with insertion of prosthetic lens R/L H/O oral surgery History of appendectomy History of cardiac cath having palpitations and found to have PVC's, [facility], denies stents; f/u PCP Hx of colonoscopy Status post gamma knife treatment for acoustic neuroma 2004 H/O prostatectomy 02/20/2018 prostate cancer Family History Mother Breast cancer Hypertension Father Cancer Other Diabetes Social History Smoking Status: Never smoker Second Hand Exposure: No; Do You Dip or Chew Tobacco: No; Tobacco Cessation Education Requested by Patient: No Hx Alcohol Use: No Hx Substance Use: No Preferred Language: Lebanese Communication Ability: Effective [employer] Required: No Beliefs That Will Affect Care: None marital status: Current Living Situation: Spouse current occupational status: retired How many Children do You have: 2 Other Information That Helps Us Care for You: No Feels Safe at Home: Yes Safety Concerns: Feels Safe At This Time Assistive Devices: Denture - Upper, Denture - Lower and Glasses Review of Systems Review of Systems: A 10 point review of system was obtained and unless otherwise stated here or in history of present illness are negative and noncontributory to chief complaint. Physical Exam Physical Exam: In General: In general is a pleasant 69-year-old male who is alert oriented x 3 at the time my exam he is resting in bed he has no specific complaints on his experience mild postoperative right knee pain not out of proportion to his procedure. HEENT: Normocephalic atraumatic pupils are equal round and reactive to light bilaterally. No scleral icterus no conjunctival injection external auditory canals are patent septum is in the midline nose is without discharge oral mucosa is pink and moist without lesion. NECK: Supple no rigidity no lymphadenopathy no thyromegaly no carotid bruits no JVD no masses. HEART: Regular rate and rhythm I do not appreciate any ectopy or rub. No murmur. LUNGS: Clear to auscultation bilaterally and anteriorly with no evidence of adventitious sounds/wheezes rales or rhonchi. ABDOMEN: Soft nontender, no rebound, no peritoneal signs, positive bowel sounds, no appreciable organomegaly. EXTREMITIES: Intact, neurovascularly bilateral lower extremities are intact. Postoperative dressing of the right knee is intact clean and dry. NEUROLOGICAL: Cranial nerves II through XII are grossly intact with no focal deficit elicited upon examination. No tremor. Results & Data Results & Data Vital Signs (Past 12 Hours) Vital Signs Temp Pulse Pulse Pulse Resp BP Pulse Ox 02/07/24 18:31 36.3 C L 76 14 153/83 H 97 02/07/24 17:30 36.3 C L 75 16 119/76 94 02/07/24 16:39 36.6 C 68 16 136/81 96 02/07/24 16:04 36.5 C 70 16 123/71 93 02/07/24 15:30 36.6 C 72 16 118/76 93 02/07/24 15:20 67 15 107/73 96 02/07/24 15:05 71 15 113/65 95 02/07/24 14:50 36.5 C 70 13 114/73 95 02/07/24 14:40 73 21 121/67 98 02/07/24 14:30 72 22 116/75 98 02/07/24 14:20 75 16 142/79 H 94 02/07/24 14:10 81 23 133/101 H 96 02/07/24 14:01 36.3 C L 80 18 135/80 97 02/07/24 09:12 36.6 C 70 20 172/102 H 98 O2 Del Method O2 Flow Rate 02/07/24 18:31 Room Air 02/07/24 17:30 Room Air 02/07/24 16:39 Room Air 02/07/24 16:04 Room Air 02/07/24 15:30 Room Air 02/07/24 15:20 Room Air 02/07/24 15:05 Room Air 02/07/24 14:50 Room Air 02/07/24 14:40 Room Air 02/07/24 14:30 Room Air 02/07/24 14:20 Room Air 02/07/24 14:10 Room Air 02/07/24 14:01 Oxymask 6 02/07/24 09:12 Room Air PG Care Time/CCT Total # of Minutes Spent Total Time Spent with Patient: Total time spent is greater than 50% in coordination of care (as documented) at patient's floor/unit and/or counseling patient: Coding Level of Care Code 98201 IN/OBS CONSULT LVL 4,60M Diagnoses Osteoarthritis of right knee M17.11
[2024-02-07] MEDS: oxyCODONE HCL IR 5 MG TAB (IMMEDIATE RELEASE) PO PRN (21:00)
[2024-02-07] MEDS: ASPIRIN 81 MG ECTAB PO SCH (21:03)
[2024-02-07] MEDS: DOCUSATE SODIUM 100 MG CAP PO SCH (21:04)
[2024-02-07] MEDS: SENNA 8.6 MG TAB PO SCH (21:05)
[2024-02-07] MEDS: PRAVASTATIN SOD 40 MG TAB PO SCH (21:05)
[2024-02-07] MEDS: GABAPENTIN 800 MG TAB PO SCH (21:05)
[2024-02-07] MEDS: PANTOprazole 40 MG TAB PO SCH (21:05)
[2024-02-07] MEDS: ACETAMINOPHEN 500 MG TAB PO SCH (21:06)
[2024-02-07] MEDS: CeleBREX 200 MG CAP PO SCH (21:24)
[2024-02-08] MEDS: HYDROmorphone INJ 0.5 MG/0.5 ML SYR IV PRN (04:08)
[2024-02-08 06:10] LABS: Hemoglobin 13.4 g/dl (14.0-18.0); Mean Corpuscular Hemoglobin 29.9 pg (25.0-34.0); Mean Corpuscular Hgb Conc 34.4 g/dL (32.0-36.0); Mean Corpuscular Volume 87.1 fL (80.0-100.0); Mean Platelet Volume 10.3 fL (9.4-12.4); Platelet Count 185 K/uL (130-400); RDW Coefficient of Variation 12.4 % (11.5-14.5); RDW Standard Deviation 39.1 fL (36.4-46.3); Red Blood Count 4.48 M/uL (4.70-6.10); White Blood Count 17.49 K/ul (4.8-10.8)
[2024-02-08 06:28] LABS: BUN Creatinine Ratio 16.4 (10-20); Calcium 8.2 mg/dl (8.6-10.3); Creatinine Clr Calc Pharmacy 59.4 ml/min; Est GFR (African American) 63.5 ml/min; Est GFR (Non-African American) 54.8 ml/min; Potassium 4.1 mmol/L (3.5-5.1)
[2024-02-08] MEDS ORDERED: NON-FORMULARY MEDICATION (Lutein-Zeaxanthin 20 mg- 1,000 mcg Capsule) PO SCH (09:00)
[2024-02-08] MEDS: RIVAROXABAN 20 MG TAB PO SCH (09:03)
[2024-02-08] MEDS: FAMOTIDINE 40 MG TABLET PO SCH (09:04)
[2024-02-08] MEDS: METOPROLOL SUCC 25MG EXT REL TAB PO SCH (09:04)
[2024-02-08] MEDS: DULoxetine HCL 20 MG CAP PO SCH (09:04)
[2024-02-08] MEDS: MULTIVITAMIN TAB PO SCH (09:04)
[2024-02-08] MEDS: dexAMETHasone 4 MG TAB PO SCH (09:05)
--- NOTE | 2024-02-08 09:21 | Orthopedic Progress Note ---
Date of Service February 08, 2024 Assessment & Plan (1) Osteoarthritis, knee: Plan: POD #1 s/p R TKA, doing as well as expected. continue diet. WBAT with walker. OOB to chair. H/H stable. Continue pain control. DVT prophylaxis: TEDs 3 weeks, foot pumps while in hospital, Xarelto 20 mg daily for 6 weeks, start 02/07/24 am due to spinal. PT/OT. Plan for discharge to home today with HH. All questions answered, discharge instructions reviewed. He understands and agrees with the plan. Admission and Anticipated Discharge Date Admission Date: February 07, 2024 Supervising Physician Co-Signing Physician Notes I, Dr. Houston, saw and examined the patient. I discussed the management with my PA. I reviewed my PAs note and agree with the documented findings and attest to completing the substantive portion (medical decision making)/ plan of care I developed. Subjective Doing well. No complaints of pain today. Pain well-controlled with oral medication. He feels ready to go home. States that his knee feels much better than his last 1 approximately a year ago. Denies any chest pain, shortness of breath, lightheadedness or dizziness. Denies any nausea or vomiting. Tolerated f breakfast this morning. ood Review of Systems Review of Systems: As per HPI Physical Exam Musculoskeletal: Exam of right lower extremity: He is able to independently straight leg raise. He has mild paresthesias in his toes which is normal for him. Dorsalis pedis pulses 1+. Foot is warm. Capillary fill is brisk. He has normal dorsiflexion, plantarflexion inversion and eversion of the right ankle with normal strength. Able to dorsiflex the great toe. No calf discomfort. Postoperative dressings are clean, dry and intact. No distal edema present. Results & Data Vital Signs (Past 12 Hours) Vital Signs Temp Pulse Pulse Resp BP Pulse Ox O2 Del Method 02/08/24 07:43 36.5 C 77 18 116/68 93 Room Air 02/08/24 03:23 36.8 C 83 16 119/69 93 Room Air 02/07/24 23:43 36.6 C 76 16 119/70 94 Room Air Laboratory Results 02/08/24 Range/Units 05:19 WBC 17.49 H (4.8-10.8) K/ul RBC 4.48 L (4.70-6.10) M/uL Hgb 13.4 L (14.0-18.0) g/dl Hct 39.0 L (42.0-52.0) % MCV 87.1 (80.0-100.0) fL MCH 29.9 (25.0-34.0) pg MCHC 34.4 (32.0-36.0) g/dL RDW Std Deviation 39.1 (36.4-46.3) fL RDW Coeff of Gautam 12.4 (11.5-14.5) % Plt Count 185 (130-400) K/uL MPV 10.3 (9.4-12.4) fL Sodium 138 (136-145) mmol/L Potassium 4.1 (3.5-5.1) mmol/L Chloride 103 (98-107) mmol/L Carbon Dioxide 28 (21-32) mmol/L Anion Gap 7 (3-11) BUN 21 (6-23) mg/dl Creatinine 1.28 (0.6-1.4) mg/dl Est Cr Clr Drug Dosing 59.4 ml/min Est GFR ( Amer) 63.5 ml/min Est GFR (Non-Af Amer) 54.8 ml/min BUN/Creatinine Ratio 16.4 (10-20) Glucose 115 H (70-99(Fasting)) mg/dl Calcium 8.2 L (8.6-10.3) mg/dl Diagnostic Findings XR knee RT 1 or 2V routine CLINICAL HISTORY: Surgical Post Op TECHNIQUE: 2 views of the right knee were obtained. Comparison: Comparison is made to knee radiograph 01/19/2024 FINDINGS: Patient is status post total knee arthroplasty with expected postsurgical changes including soft tissue swelling and subcutaneous emphysema. No periarticular lucency or hardware fracture is seen. IMPRESSION: Expected postoperative appearance status post placement of total knee arthroplasty.
--- NOTE | 2024-02-08 09:32 | Discharge Summary ---
Date of Service February 08, 2024 Discharge Data Consultations 02/07/24 15:45 Consult Hospitalist Routine Procedures Performed Operation Date: 02/07/24 10:20 Actual Procedures p Right Total Knee Arthroplasty(Right) - Vito Houston MD Hospital Course (1) Osteoarthritis, knee: Patient was kept in observation at [facility] after undergoing an elective right total knee arthroplasty by Dr. Houston on February 07, 2024. His surgery was performed with spinal anesthetic and peripheral nerve block. He tolerated the procedure well without any intraoperative complications. Preoperatively was given 2 g of IV Ancef for surgical prophylaxis which was continued for 24 hours after surgery. He was also given 1 g of IV TXA preoperatively for bleeding prophylaxis which was continued intraoperatively. Postoperatively in the recovery room and x-rays of his right knee which showed a stable right knee prosthesis and no evidence of hardware failure or fracture. He was allowed out of bed, weight-bear as tolerated on the right lower extremity with the assistance of a walker. His home medications were continued. He was given a regular diet, which he tolerated without any difficulties during his inpatient stay. He did not develop any postoperative nausea, vomiting, lightheadedness, dizziness, chest pain or shortness of breath. On postoperative day 1 his CBC and BMP was performed and showed stable H&H, platelet count and BMP. Vital signs remained stable during his inpatient stay. He was given Tylenol, oxycodone, Dilaudid and Celebrex as needed for postoperative pain control. His pain was well-controlled with oxycodone and Tylenol. Hadley stockings were placed for DVT prophylaxis which will be continued for 3 weeks after surgery, he was also given AV impulse boots to wear during his inpatient stay. He was also started on Xarelto 20 mg p.o. daily for 6 weeks postoperatively on postoperative day 1 due to previous history of DVT and for DVT prophylaxis. Physical therapy and Occupational Therapy consults were placed. He was seen and evaluated on postoperative day 1 and was deemed safe for discharge to his home. Case management was involved for disposition needs. He requested home with home health and physical therapy. Postoperative dressings were clean and dry and were left in place. He will follow-up as an outpatient for those to be changed within the next 1 to 2 days. Discharge instructions were reviewed. All questions were answered. He understands and agrees with the plan. He was discharged to his home in stable condition on February 08, 2024.
== END 2024-02-08 11:39 | disposition home health service (06) ==
LOC: ASU 08:40 → 3E 08:40 → SUATTDRO 14:08

== ENCOUNTER 2025-06-07 07:43 | Inpatient (IN) ==
--- NOTE | 2025-06-07 08:07 | Emergency Department Note ---
Impression & Plan Fever, SIRS (systemic inflammatory response syndrome), Acidosis, lactic, Acute Lyme disease ED Provider Note NAME: LISSETTE PADILLA AGE: 74 SEX: M : 1950 ARRIVES VIA: Walk-In INFORMANT: Patient, ED PROVIDER(S): Tong Lim DO CHIEF COMPLAINT: Fever HPI: The patient is a 74-year-old male who presented to the emergency department for evaluation of fever. The patient had symptoms since last week. The patient states she has had a slight cough. He has been taking Tylenol as well as Motrin. Patient also complains of headache. Patient denies having any abdominal pain but does complain of nausea. The patient denies having any rashes or obvious ticks that he is removed from his body recently. He is on antibiotic for a perirectal cyst that his family doctor diagnosed. ROS: See above HPI for pertinent positives & negatives. A total of 10 systems reviewed and were otherwise negative. PAST MEDICAL HISTORY: See Below PAST SURGICAL HISTORY: See Below FAMILY HISTORY: See Below SOCIAL HISTORY: See Below HOME MEDICATIONS: See Below ALLERGIES: See Below VITALS: See Below PHYSICAL EXAMINATION: GENERAL: Patient is awake alert in no acute distress patient is resting comfortably and showing no signs of anxiety EYES: The conjunctivae are clear. The pupils are round and reactive. EARS, NOSE, MOUTH AND THROAT: The nose is without any evidence of any deformity. NECK: The neck is nontender and supple. RESPIRATORY: Normal respiratory effort is noted there is no evidence of wheezing rhonchi or rales CARDIOVASCULAR: Tachycardic and regular heart sounds were noted to auscultation. There is no definite murmur. GASTROINTESTINAL: The abdomen is soft. Abdomen is nontender. MUSCULOSKELETAL/EXTREMITIES: There is no evidence of gross deformity full range of motion is noted in the hips and shoulders. SKIN: There is no obvious evidence of any rash. There are no petechiae, pallor or cyanosis noted. NEUROLOGIC: Patient is awake alert and oriented x3 strength is symmetric patellar reflexes are 2+ bilaterally MEDICAL DECISION MAKING: The patient is a 74-year-old male who presented to the emergency department for an evaluation of fever. The patient's had ongoing symptoms over the course the last several days. The patient was treated with IV fluids in the emergency department. He was also treated with IV antibiotics. I discussed the patient's laboratory and radiographic studies with him. The patient was found to have signs of lactic acidosis as well as elevated white blood cell count. Given the patient's age and comorbidities I did discuss his condition with the on-call [facility] hospitalist. He was found have a slight elevation in his creatinine. His Lyme screen was positive which leads me to think he may have a tickborne illness which could include anaplasmosis given his systemic symptoms. The patient was agreeable to this plan. Triage Nursing notes reviewed. Prior medical records reviewed Vital Signs: reviewed and remarkable for no significant abnormalities Differential diagnosis: Viral syndrome, otitis, pharyngitis, pneumonia, influenza, meningitis, urinary tract infection, sepsis, bacteremia, as well as other pathologies. ER treatment provided: See below Diagnostics interpreted by me: ECG: EKG was obtained in the emergency department. My interpretation is sinus tachycardia at 108 bpm. There is no ectopy. Nonspecific T wave abnormalities are noted in the high lateral leads. This was compared to a tracing from January 19, 2024. No changes were noted. Cardiac Monitoring: An order was placed for continuous cardiac monitoring. The monitor shows a rate of 82 bpm with sinus rhythm. Laboratory studies: As stated above and show below. Imaging studies: See below. Radiographic imaging was reviewed by myself Consultation(s): I discussed this case with ROSA who is on-call for the [facility] hospitalist group. Past Med/Surg History Problem List (Updated 06/07/25 @ 12:44 by Tong Lim DO) Acute Lyme disease (Acute) Acidosis, lactic (Acute) SIRS (systemic inflammatory response syndrome) (Acute) Fever (Acute) NOAH (acute kidney injury) Lyme disease Status post total right knee replacement using cement Osteoarthritis of right knee Osteoarthritis, knee S/P inguinal hernia repair Peripheral neuropathy Premature atrial contraction Per records Osteoarthritis IT band syndrome Prostate cancer 2018 s/p prostatectomy Hearing loss in right ear GERD (gastroesophageal reflux disease) controlled, stable per pt Hypertriglyceridemia Disseminated idiopathic skeletal hyperostosis CKD (chronic kidney disease), stage III Per records Cataract Back pain Arthritis Prostate ca (Acute) Medical History PVC's (premature ventricular contractions) controlled w/ metoprolol History of prostate cancer 2018 s/p prostatectomy PAC (premature atrial contraction) per records, no cardio Peripheral neuropathy feet Osteoarthritis Dyslipidemia GERD (gastroesophageal reflux disease) CKD (chronic kidney disease) per records; pt denies History of COVID-19 (2020) no hosp; resolved Migraines Hx of deep venous thrombosis 2022- was on Xarelto x1 month then discontinued Parathyroid disorder s/p parathyroidectomy 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 Kraus 10/02/2020 LMA#5 Hx of blepharoplasty Hx of parathyroidectomy left side H/O cataract removal with insertion of prosthetic lens R/L H/O oral surgery History of appendectomy History of cardiac cath (1999) having palpitations and found to have PVC's, [facility], denies stents; f/u PCP Hx of colonoscopy Status post gamma knife treatment for acoustic neuroma 2004 H/O prostatectomy 02/20/2018 prostate cancer Family History Mother Breast cancer Hypertension Father Cancer Other Diabetes Social History Smoking Status: Never smoker Second Hand Exposure: No; Do You Dip or Chew Tobacco: No; Hx Alcohol Use: Yes Hx Substance Use: No Preferred Language: Dutch Communication Ability: Effective Axle Polisher Required: No Beliefs That Will Affect Care: None marital status: Current Living Situation: Spouse current occupational status: retired How many Children do You have: 2 Feels Safe at Home: Yes Assistive Devices: Denture - Upper, Denture - Lower and Glasses Allergies Allergies Allergy/AdvReac Type Severity Reaction Status Date / Time adhesive Allergy Intermediate hives Verified 03/15/25 06:39 latex Allergy Mild RASH AFTER Verified 03/15/25 06:39 LONG EXPOSURE tetanus immune globulin Allergy Mild UNSURE, Verified 03/15/25 06:39 POSS RASH Home Meds Home Medications Medication Instructions Recorded Confirmed gabapentin 800 mg tablet 600 mg PO TID 08/22/20 06/07/25 metoprolol succinate 25 mg 50 mg PO QAM 08/22/20 06/07/25 tablet,extended release 24 hr pravastatin 40 mg tablet 40 mg PO HS 08/22/20 06/07/25 quulroh-vyoxdiingydtm-envbzkyb 250 2 tab PO Q12H PRN Migraine Headache 05/11/21 06/07/25 mg-250 mg-65 mg tablet (Excedrin Migraine) diphenhydramine HCl 50 mg capsule 50 mg PO HS PRN Sleep 05/11/21 06/07/25 (Banophen) aspirin 81 mg tablet 81 mg PO HS 01/12/24 06/07/25 duloxetine 20 mg capsule,delayed 30 mg PO QAM 01/12/24 06/07/25 release sprinkle lutein 20 mg-zeaxanthin 1,000 mcg 1 cap PO QAM 01/12/24 06/07/25 capsule omeprazole 40 mg capsule,delayed 40 mg PO QPM 01/12/24 06/07/25 release acetaminophen 500 mg tablet 1,000 mg PO Q8 PRN Pain 06/07/25 06/07/25 (Tylenol Extra Strength) ketoconazole 2 % topical cream 1 applic topical BID 06/07/25 06/07/25 olmesartan 20 mg tablet 20 mg PO QAM 06/07/25 06/07/25 sulfamethoxazole 800 1 tab PO BID 06/07/25 06/07/25 mg-trimethoprim 160 mg tablet Results & Data (ED) Vital Signs Vital Signs - 24 hr 06/07/25 07:45 06/07/25 08:28 06/07/25 08:29 Temperature 36.3 C L Temperature Source Temporal Artery Scan Pulse Rate 111 H 106 H Pulse Rate [Apical] 102 H Pulse Rhythm [Apical] Regular Pulse Strength [Apical] Normal Respiratory Rate 18 23 Respiratory Effort / Characteristics Non-Labored Spontaneous Respiratory Depth Normal Respiratory Pattern Regular Blood Pressure 115/71 Blood Pressure [Right Arm] 124/72 Blood Pressure Mean 85 Blood Pressure Mean [Right Arm] 89 Blood Pressure Position Sitting Blood Pressure Position [Right Arm] Sitting Pulse Oximetry 94 94 Oxygen Delivery Method Room Air Sepsis Recent Fever Within 48 Hours No Sepsis New/Unexplained Change in Mental Status No Sepsis Action Taken by Nursing No Action Required 06/07/25 10:00 06/07/25 11:31 Temperature Temperature Source Pulse Rate Pulse Rate [Apical] 85 82 Pulse Rhythm [Apical] Regular Pulse Strength [Apical] Normal Respiratory Rate 24 21 Respiratory Effort / Characteristics Non-Labored Spontaneous Respiratory Depth Normal Respiratory Pattern Regular Blood Pressure Blood Pressure [Right Arm] 120/75 123/81 Blood Pressure Mean Blood Pressure Mean [Right Arm] 90 95 Blood Pressure Position Blood Pressure Position [Right Arm] Sitting Pulse Oximetry 94 96 Oxygen Delivery Method Room Air Sepsis Recent Fever Within 48 Hours Sepsis New/Unexplained Change in Mental Status Sepsis Action Taken by [facility] Medications Current Medication List: was personally reviewed by me Laboratory Data Attestation: I reviewed the patient's lab results. 06/07/25 08:12 06/07/25 08:12 Lab Results 06/07/25 06/07/25 06/07/25 Range/Units 08:12 08:22 09:45 WBC 14.77 H (4.8-10.8) K/ul RBC 5.12 (4.70-6.10) M/uL Hgb 15.0 (14.0-18.0) g/dl POC Hgb 15.6 (14.0-18.0) g/dl Hct 44.2 (42.0-52.0) % POC Hct 46 (42-52) % MCV 86.3 (80.0-100.0) fL MCH 29.3 (25.0-34.0) pg MCHC 33.9 (32.0-36.0) g/dL RDW Std Deviation 41.8 (36.4-46.3) fL RDW Coeff of Gautam 13.2 (11.5-14.5) % Plt Count 230 (130-400) K/uL MPV 9.2 L (9.4-12.4) fL Immature Gran % (Auto) 0.5 % Neut % (Auto) 79.7 % Lymph % (Auto) 9.2 % Arthur % (Auto) 9.3 % Eos % (Auto) 0.9 % Baso % (Auto) 0.4 % Neut # (Auto) 11.78 H (1.40-6.50) K/uL Lymph # (Auto) 1.36 (1.20-3.40) K/uL Arthur # (Auto) 1.37 H (0.11-0.59) K/uL Eos # (Auto) 0.13 (0.00-0.50) K/uL Baso # (Auto) 0.06 (0.00-0.20) K/uL Immature Gran # (Auto) 0.07 (0.01-0.20) K/uL VBG pH (7.36-7.41) VBG pCO2 (38-50) mmHg VBG pO2 mmHg VBG HCO3 mmol/L VBG O2 Saturation % VBG Base Excess mEq/L POC Sodium 135 (135-144) mmol/L Sodium 136 (136-145) mmol/L POC Potassium 4.0 (3.3-5.0) mmol/L Potassium 4.1 (3.5-5.1) mmol/L POC Chloride 99 L (101-112) mmol/L Chloride 99 (98-107) mmol/L Carbon Dioxide 26 (21-32) mmol/L POC Total CO2 25 (24-31) mmol/L Anion Gap 11 (3-11) POC Anion Gap 16.0 (16-25) mmol/L POC BUN 25 H (7-18) mg/dl BUN 22 (6-23) mg/dl Creatinine 1.82 H (0.6-1.4) mg/dl POC Creatinine 2.0 H (0.6-1.3) mg/dl Est Cr Clr Drug Dosing 41.5 ml/min eGFR 38.26 BUN/Creatinine Ratio 12.1 (10-20) Glucose 116 H (70-99(Fasting)) mg/dl POC Glucose (other) 122 H (70-99) mg/dl Lactate (0.4-2.0) mmol/L Calcium 8.6 (8.6-10.3) mg/dl POC Ioniz Calcium Ruth 1.03 L (1.12-1.32) mmol/l Total Bilirubin 2.0 H (0.2-1.0) mg/dl AST 14 (13-39) U/L ALT 7 (7-52) U/L Alkaline Phosphatase 57 (34-104) U/L Troponin I High Sens 27.7 H (0-20) pg/ml C-Reactive Protein 22.69 H (0-0.5) mg/dl Total Protein 8.0 (6.0-8.3) gm/dl Albumin 4.1 (3.4-5.0) gm/dl Globulin 3.9 (2.5-4.0) gm/dl Albumin/Globulin Ratio 1.1 (0.9-2) Lipase 22 (11-82) U/L Procalcitonin 0.45 (0-0.5) ng/ml Urine Color Dark Yellow Urine Appearance Clear (Clear) Urine pH 5.5 (4.5-7.5) Ur Specific [place] > 1.045 H (1.000-1.030) Urine Protein 1+ H (Negative) Urine Glucose (UA) Negative (Negative) Urine Ketones Trace H (Negative) Urine Blood Trace H (Negative) Urine Nitrite Negative (Negative) Urine Bilirubin Negative (Negative) Urine Urobilinogen Negative (Negative) Ur Leukocyte Esterase Negative (Negative) Urine WBC (Auto) 0-5 (0-5) /hpf Urine RBC (Auto) 0-2 (0-2) /hpf U Hyaline Cast (Auto) 3-5 H (0-2) /lpf U Epithel Cells (Auto) 3-5 H (0-2) /hpf Urine Bacteria (Auto) None Seen (None Seen) Urine Comment Adenovirus (PCR) (NotDetected) Anaplasma Smear See Comment Babesia Smear See Comment B. pertussis DNA (PCR) (NotDetected) B.parapertussis DNA PCR (NotDetected) Lyme Disease Screen Positive H (Negative) C. pneumoniae DNA (PCR) (NotDetected) Coronavirus OC43 (PCR) (NotDetected) Coronavirus HKU1 (PCR) (NotDetected) Coronavirus 229E (PCR) (NotDetected) SARS-CoV-2 (PCR) (NotDetected) Coronavirus NL63 (PCR) (NotDetected) Human Metapneumovir PCR (NotDetected) Influenza Type A (PCR) (NotDetected) Influenza Type B (PCR) (NotDetected) M. pneumoniae (PCR) (NotDetected) Parainfluenza 1 (PCR) (NotDetected) Parainfluenza 2 (PCR) (NotDetected) Parainfluenza 3 (PCR) (NotDetected) Parainfluenza 4 (PCR) (NotDetected) RSV (PCR) (NotDetected) Entero/Rhino (PCR) (NotDetected) 07/18/25 07/18/25 07/18/25 Range/Units 10:01 10:24 11:11 WBC (4.8-10.8) K/ul RBC (4.70-6.10) M/uL Hgb (14.0-18.0) g/dl POC Hgb (14.0-18.0) g/dl Hct (42.0-52.0) % POC Hct (42-52) % MCV (80.0-100.0) fL MCH (25.0-34.0) pg MCHC (32.0-36.0) g/dL RDW Std Deviation (36.4-46.3) fL RDW Coeff of Gautam (11.5-14.5) % Plt Count (130-400) K/uL MPV (9.4-12.4) fL Immature Gran % (Auto) % Neut % (Auto) % Lymph % (Auto) % Arthur % (Auto) % Eos % (Auto) % Baso % (Auto) % Neut # (Auto) (1.40-6.50) K/uL Lymph # (Auto) (1.20-3.40) K/uL Arthur # (Auto) (0.11-0.59) K/uL Eos # (Auto) (0.00-0.50) K/uL Baso # (Auto) (0.00-0.20) K/uL Immature Gran # (Auto) (0.01-0.20) K/uL VBG pH 7.30 L (7.36-7.41) VBG pCO2 52 H (38-50) mmHg VBG pO2 29 mmHg VBG HCO3 26 mmol/L VBG O2 Saturation < 60.0 % VBG Base Excess -1.6 mEq/L POC Sodium (135-144) mmol/L Sodium (136-145) mmol/L POC Potassium (3.3-5.0) mmol/L Potassium (3.5-5.1) mmol/L POC Chloride (101-112) mmol/L Chloride (98-107) mmol/L Carbon Dioxide (21-32) mmol/L POC Total CO2 (24-31) mmol/L Anion Gap (3-11) POC Anion Gap (16-25) mmol/L POC BUN (7-18) mg/dl BUN (6-23) mg/dl Creatinine (0.6-1.4) mg/dl POC Creatinine (0.6-1.3) mg/dl Est Cr Clr Drug Dosing ml/min eGFR BUN/Creatinine Ratio (10-20) Glucose (70-99(Fasting)) mg/dl POC Glucose (other) (70-99) mg/dl Lactate 3.3 H* (0.4-2.0) mmol/L Calcium (8.6-10.3) mg/dl POC Ioniz Calcium Ruth (1.12-1.32) mmol/l Total Bilirubin (0.2-1.0) mg/dl AST (13-39) U/L ALT (7-52) U/L Alkaline Phosphatase (34-104) U/L Troponin I High Sens 23.9 H (0-20) pg/ml C-Reactive Protein (0-0.5) mg/dl Total Protein (6.0-8.3) gm/dl Albumin (3.4-5.0) gm/dl Globulin (2.5-4.0) gm/dl Albumin/Globulin Ratio (0.9-2) Lipase (11-82) U/L Procalcitonin (0-0.5) ng/ml Urine Color Urine Appearance (Clear) Urine pH (4.5-7.5) Ur Specific [place] (1.000-1.030) Urine Protein (Negative) Urine Glucose (UA) (Negative) Urine Ketones (Negative) Urine Blood (Negative) Urine Nitrite (Negative) Urine Bilirubin (Negative) Urine Urobilinogen (Negative) Ur Leukocyte Esterase (Negative) Urine WBC (Auto) (0-5) /hpf Urine RBC (Auto) (0-2) /hpf U Hyaline Cast (Auto) (0-2) /lpf U Epithel Cells (Auto) (0-2) /hpf Urine Bacteria (Auto) (None Seen) Urine Comment Adenovirus (PCR) Not Detected (NotDetected) Anaplasma Smear Babesia Smear B. pertussis DNA (PCR) Not Detected (NotDetected) B.parapertussis DNA PCR Not Detected (NotDetected) Lyme Disease Screen (Negative) C. pneumoniae DNA (PCR) Not Detected (NotDetected) Coronavirus OC43 (PCR) Not Detected (NotDetected) Coronavirus HKU1 (PCR) Not Detected (NotDetected) Coronavirus 229E (PCR) Not Detected (NotDetected) SARS-CoV-2 (PCR) Not Detected (NotDetected) Coronavirus NL63 (PCR) Not Detected (NotDetected) Human Metapneumovir PCR Not Detected (NotDetected) Influenza Type A (PCR) Not Detected (NotDetected) Influenza Type B (PCR) Not Detected (NotDetected) M. pneumoniae (PCR) Not Detected (NotDetected) Parainfluenza 1 (PCR) Not Detected (NotDetected) Parainfluenza 2 (PCR) Not Detected (NotDetected) Parainfluenza 3 (PCR) Not Detected (NotDetected) Parainfluenza 4 (PCR) Not Detected (NotDetected) RSV (PCR) Not Detected (NotDetected) Entero/Rhino (PCR) Not Detected (NotDetected) 06/07/25 Range/Units 12:04 WBC (4.8-10.8) K/ul RBC (4.70-6.10) M/uL Hgb (14.0-18.0) g/dl POC Hgb (14.0-18.0) g/dl Hct (42.0-52.0) % POC Hct (42-52) % MCV (80.0-100.0) fL MCH (25.0-34.0) pg MCHC (32.0-36.0) g/dL RDW Std Deviation (36.4-46.3) fL RDW Coeff of Gautam (11.5-14.5) % Plt Count (130-400) K/uL MPV (9.4-12.4) fL Immature Gran % (Auto) % Neut % (Auto) % Lymph % (Auto) % Arthur % (Auto) % Eos % (Auto) % Baso % (Auto) % Neut # (Auto) (1.40-6.50) K/uL Lymph # (Auto) (1.20-3.40) K/uL Arthur # (Auto) (0.11-0.59) K/uL Eos # (Auto) (0.00-0.50) K/uL Baso # (Auto) (0.00-0.20) K/uL Immature Gran # (Auto) (0.01-0.20) K/uL VBG pH (7.36-7.41) VBG pCO2 (38-50) mmHg VBG pO2 mmHg VBG HCO3 mmol/L VBG O2 Saturation % VBG Base Excess mEq/L POC Sodium (135-144) mmol/L Sodium (136-145) mmol/L POC Potassium (3.3-5.0) mmol/L Potassium (3.5-5.1) mmol/L POC Chloride (101-112) mmol/L Chloride (98-107) mmol/L Carbon Dioxide (21-32) mmol/L POC Total CO2 (24-31) mmol/L Anion Gap (3-11) POC Anion Gap (16-25) mmol/L POC BUN (7-18) mg/dl BUN (6-23) mg/dl Creatinine (0.6-1.4) mg/dl POC Creatinine (0.6-1.3) mg/dl Est Cr Clr Drug Dosing ml/min eGFR BUN/Creatinine Ratio (10-20) Glucose (70-99(Fasting)) mg/dl POC Glucose (other) (70-99) mg/dl Lactate 1.3 (0.4-2.0) mmol/L Calcium (8.6-10.3) mg/dl POC Ioniz Calcium Ruth (1.12-1.32) mmol/l Total Bilirubin (0.2-1.0) mg/dl AST (13-39) U/L ALT (7-52) U/L Alkaline Phosphatase (34-104) U/L Troponin I High Sens (0-20) pg/ml C-Reactive Protein (0-0.5) mg/dl Total Protein (6.0-8.3) gm/dl Albumin (3.4-5.0) gm/dl Globulin (2.5-4.0) gm/dl Albumin/Globulin Ratio (0.9-2) Lipase (11-82) U/L Procalcitonin (0-0.5) ng/ml Urine Color Urine Appearance (Clear) Urine pH (4.5-7.5) Ur Specific [place] (1.000-1.030) Urine Protein (Negative) Urine Glucose (UA) (Negative) Urine Ketones (Negative) Urine Blood (Negative) Urine Nitrite (Negative) Urine Bilirubin (Negative) Urine Urobilinogen (Negative) Ur Leukocyte Esterase (Negative) Urine WBC (Auto) (0-5) /hpf Urine RBC (Auto) (0-2) /hpf U Hyaline Cast (Auto) (0-2) /lpf U Epithel Cells (Auto) (0-2) /hpf Urine Bacteria (Auto) (None Seen) Urine Comment Adenovirus (PCR) (NotDetected) Anaplasma Smear Babesia Smear B. pertussis DNA (PCR) (NotDetected) B.parapertussis DNA PCR (NotDetected) Lyme Disease Screen (Negative) C. pneumoniae DNA (PCR) (NotDetected) Coronavirus OC43 (PCR) (NotDetected) Coronavirus HKU1 (PCR) (NotDetected) Coronavirus 229E (PCR) (NotDetected) SARS-CoV-2 (PCR) (NotDetected) Coronavirus NL63 (PCR) (NotDetected) Human Metapneumovir PCR (NotDetected) Influenza Type A (PCR) (NotDetected) Influenza Type B (PCR) (NotDetected) M. pneumoniae (PCR) (NotDetected) Parainfluenza 1 (PCR) (NotDetected) Parainfluenza 2 (PCR) (NotDetected) Parainfluenza 3 (PCR) (NotDetected) Parainfluenza 4 (PCR) (NotDetected) RSV (PCR) (NotDetected) Entero/Rhino (PCR) (NotDetected) Administered Medications Discontinued Medications Doxycycline Hyclate (Doxycycline Hyclate 100 Mg Cap) 200 mg PO NOW STA Stop: 06/07/25 10:50 Last Admin: 06/07/25 10:57 Dose: 200 mg Documented By: DANEILLA Sodium Chloride (Nss) 500 mls @ 999 mls/hr IV .Q31M ONE Stop: 06/07/25 08:33 Last Infusion: 06/07/25 09:11 Dose: Infused Documented By: Admin: 06/07/25 08:29 Dose: 999 mls/hr Documented By: DANIELLA Acetaminophen (Ofirmev) 1,000 mg in 100 mls @ 400 mls/hr IV NOW STA Stop: 06/07/25 08:17 Last Infusion: 06/07/25 08:56 Dose: Infused Documented By: Admin: 06/07/25 08:30 Dose: 400 mls/hr Documented By: DANIELLA Sodium Chloride (Nss) 500 mls @ 999 mls/hr IV .Q31M ONE Stop: 06/07/25 08:53 Last Infusion: 06/07/25 10:14 Dose: Infused Documented By: Admin: 06/07/25 09:11 Dose: 999 mls/hr Documented By: DANIELLA Ceftriaxone Sodium (Rocephin) 2,000 mg in 50 mls @ 100 mls/hr IV NOW STA Stop: 06/07/25 10:50 Last Infusion: 06/07/25 11:32 Dose: Infused Documented By: Admin: 06/07/25 10:59 Dose: 100 mls/hr Documented By: DANIELLA Sodium Chloride (Nss) 1,000 mls @ 999 mls/hr IV .Q1H1M ONE Stop: 06/07/25 11:39 Last Admin: 06/07/25 11:02 Dose: 999 mls/hr Documented By: DANIELLA Ioversol (Optiray 320 100ml) 93 ml IV ONCE ONE Stop: 06/07/25 09:04 Last Admin: 06/07/25 09:03 Dose: 93 ml Documented By: DUARTE Ondansetron HCl (Ondansetron Inj 2 Mg/Ml 2 Ml Vial) 4 mg IV NOW STA Stop: 06/07/25 11:43 Last Admin: 06/07/25 11:47 Dose: 4 mg Documented By: DANIELLA Imaging Data Attestation: I personally reviewed and interpreted this imaging study as follows: My Impression: 1 view chest x-ray was obtained in the emergency department. My interpretation is no definite infiltrate or free air, final report below. Radiologist's Impression: Abdomen/Pelvis CT 06/07/25 08:[address] WITH IV CONTRAST CT DOSE: 2066 HISTORY: perirectalpain TECHNIQUE: Multiaxial CT images of the abdomen and pelvis were performed following the IV administration of 90 cc of Optiray, A dose lowering technique was utilized adhering to the principles of ALARA. COMPARISON STUDY: None FINDINGS: ABDOMEN: There is a tiny cyst at the right hepatic lobe. There are a few tiny gallstones without evidence of acute cholecystitis. Otherwise the liver, spleen, pancreas, and adrenal glands are unremarkable. There are a few cysts at the kidneys, largest is at the left upper kidney measuring 5 cm. There is a tiny calcification inferior left kidney. No hydronephrosis bilaterally. There are scattered atherosclerotic calcifications. No abdominal aortic aneurysm. Pelvis: Prostate is not visualized. Urinary bladder is nondistended. There is mild sigmoid diverticulosis. No acute diverticulitis. There is mild to moderate retained stool. No bowel inflammation or obstruction seen. No free fluid, free air, or abscess. No perirectal abscess or hematoma seen. Osseous structures: There are mild degenerative changes at the lumbar spine and hips. IMPRESSION: No acute findings seen. ACT 112: Negative or not required by law. The above report was generated using voice recognition software. It may contain grammatical, syntax or spelling errors. Electronically signed by: Lissette Max M.D. 06/07/2025 9:32 AM Chest X-Ray 06/07/25 08:03 SINGLE VIEW CHEST CLINICAL HISTORY: Fever FINDINGS: 2 AP, portable, upright chest radiographs are compared to study dated 06/05/2025. The heart is mildly enlarged noting atherosclerotic calcification of the thoracic aorta. The pulmonary vasculature is noncongested. There is mild bibasilar scarring/atelectasis. The lungs and pleural spaces are otherwise clear. No pneumothorax is seen. The skeletal structures are osteopenic. The bony thorax is grossly intact. IMPRESSION: No acute cardiopulmonary abnormality is identified. ACT 112: Negative or not required by law. Electronically signed by: Young Sanford M.D. 06/07/2025 8:[address] 06/07/25 08:03 CT SCAN OF THE BRAIN WITHOUT IV CONTRAST CLINICAL HISTORY: Headache. COMPARISON STUDY: MRI of the brain dated 07/29/2021 TECHNIQUE: Unenhanced axial CT scan of the brain is performed from the vertex to the skull base. Images are reviewed in the axial, sagittal, coronal planes. A dose lowering technique was utilized adhering to the principles of ALARA. CT DOSE: 7.3 mGy.cm FINDINGS: Brain parenchyma: There is age-related involutional change noting mild subcortical and periventricular microangiopathic disease. There is no hemorrhage, mass effect, or evidence of acute territorial ischemia by CT criteria. Monk-white matter differentiation is preserved. No extra-axial fluid collection is seen. Ventricles, sulci, cisterns: Prominent secondary to involutional change. Intracranial vasculature: There is atherosclerotic calcification of the cavernous carotid and vertebral arteries. Calvarium: Unremarkable. Sinuses and mastoids: There is trace mucosal thickening within the frontal and ethmoid sinuses. The mastoid air cells are well pneumatized. Orbits: The bony orbits are grossly intact. There are bilateral ocular lens implants. IMPRESSION: There is no hemorrhage, mass effect, or evidence of acute territorial ischemia by CT criteria. ACT 112: Negative or not required by law. Electronically signed by: Young Sanford M.D. 06/07/2025 9:18 AM Discharge Plan Visit Data Chief Complaint: Illness Stated Complaint: FEVER,NUSCLE ACHES,UNSTEADY ON FEET ED Provider: Tong Lim Discharge Problem: Fever, SIRS (systemic inflammatory response syndrome), Acidosis, lactic, Acute Lyme disease Patient Disposition: Being Evaluated by Hospitalist Condition: Fair Forms Stand Alone Forms: My [facility] SensingStrip Prescriptions Prescriptions: No Action metoprolol succinate 25 mg tablet extended release 24 hr 50 mg PO QAM gabapentin 800 mg tablet 600 mg PO TID pravastatin 40 mg tablet 40 mg PO HS aspirin 81 mg Tablet 81 mg PO HS omeprazole 40 mg Capsule,Delayed Release(Dr/Ec) 40 mg PO QPM duloxetine 20 mg Capsule, Delayed Rel Sprinkle 30 mg PO QAM lutein-zeaxanthin 20 mg- 1,000 mcg Capsule 1 cap PO QAM diphenhydramine HCl [Banophen] 50 mg Capsule 50 mg PO HS PRN (Reason: Sleep) Excedrin Migraine 250-250-65 mg Tablet 2 tab PO Q12H PRN (Reason: Migraine Headache) sulfamethoxazole-trimethoprim 800-160 mg tablet 1 tab PO BID Patient Comments: filled 06/04 10 day supply #20 ketoconazole 2 % cream 1 applic topical BID olmesartan 20 mg tablet 20 mg PO QAM acetaminophen [Tylenol Extra Strength] 500 mg tablet 1,000 mg PO Q8 PRN (Reason: Pain) Rx Instructions: over the counter Referrals Referrals: Jose Olmstead MD [Primary Care Provider] -
[2025-06-07] MEDS: SODIUM CHLORIDE 0.9% 500 ML IV ONE ×2 (08:29→09:11)
[2025-06-07] MEDS: ACETAMINOPHEN 1,000 MG/100 ML VIAL IV STA (08:30)
[2025-06-07 08:35] LABS: Hematocrit (blood only) 44.2 % (42.0-52.0); Hemoglobin 15.0 g/dl (14.0-18.0); Immature Granulocytes # (auto) 0.07 K/uL (0.01-0.20); Immature Granulocytes % (auto) 0.5 %; Mean Corpuscular Hemoglobin 29.3 pg (25.0-34.0); Mean Corpuscular Volume 86.3 fL (80.0-100.0); Platelet Count 230 K/uL (130-400); RDW Standard Deviation 41.8 fL (36.4-46.3); Red Blood Count 5.12 M/uL (4.70-6.10); White Blood Count 14.77 K/ul (4.8-10.8)
[2025-06-07 08:51] LABS: Alanine Aminotransferase 7.0 U/L (7-52); Albumin Globulin Ratio 1.1 (0.9-2); Alkaline Phosphatase 57.0 U/L (34-104); Anion Gap 11.0 (3-11); Bilirubin,Total 2.0 mg/dl (0.2-1.0); Blood Urea Nitrogen 22.0 mg/dl (6-23); Calcium 8.6 mg/dl (8.6-10.3); Carbon Dioxide 26.0 mmol/L (21-32); Chloride 99.0 mmol/L (98-107); Creatinine Clr Calc Pharmacy 41.5 ml/min; Globulin 3.9 gm/dl (2.5-4.0); Glucose 116.0 mg/dl (70-99(Fasting)); Lipase 22.0 U/L (11-82); Potassium 4.1 mmol/L (3.5-5.1); Sodium 136.0 mmol/L (136-145); Total Protein 8.0 gm/dl (6.0-8.3)
--- NOTE | 2025-06-07 09:00 | XRay Report ---
SINGLE VIEW CHEST CLINICAL HISTORY: Fever FINDINGS: 2 AP, portable, upright chest radiographs are compared to study dated 06/05/2025. The heart is mildly enlarged noting atherosclerotic calcification of the thoracic aorta. The pulmonary vasculat ure is noncongested. There is mild bibasilar scarring/atelectasis. The lungs and pleural spaces are o therwise clear. No pneumothorax is seen. The skeletal structures are osteopenic. The bony thorax is g rossly intact. IMPRESSION: No acute cardiopulmonary abnormality is identified. ACT 112: Negative or not required by law. Electronically signed by: Young Sanford M.D. 06/07/2025 8:58 AM
[2025-06-07] MEDS: OPTIRAY 320 100ml IV ONE (09:03)
--- NOTE | 2025-06-07 09:21 | CT Scan Report ---
CT SCAN OF THE BRAIN WITHOUT IV CONTRAST CLINICAL HISTORY: Headache. COMPARISON STUDY: MRI of the brain dated 07/29/2021 TECHNIQUE: Unenhanced axial CT scan of the brain is performed from the vertex to the skull base. Imag es are reviewed in the axial, sagittal, coronal planes. A dose lowering technique was utilized adheri ng to the principles of ALARA. CT DOSE: 2067.3 mGy.cm FINDINGS: Brain parenchyma: There is age-related involutional change noting mild subcortical and periventricula r microangiopathic disease. There is no hemorrhage, mass effect, or evidence of acute territorial isc hemia by CT criteria. Monk-white matter differentiation is preserved. No extra-axial fluid collection is seen. Ventricles, sulci, cisterns: Prominent secondary to involutional change. Intracranial vasculature: There is atherosclerotic calcification of the cavernous carotid and vertebr al arteries. Calvarium: Unremarkable. Sinuses and mastoids: There is trace mucosal thickening within the frontal and ethmoid sinuses. The m astoid air cells are well pneumatized. Orbits: The bony orbits are grossly intact. There are bilateral ocular lens implants. IMPRESSION: There is no hemorrhage, mass effect, or evidence of acute territorial ischemia by CT kobi marrufo. ACT 112: Negative or not required by law. Electronically signed by: Young Sanford M.D. 06/07/2025 9:18 AM
--- NOTE | 2025-06-07 09:34 | CT Scan Report ---
ABDOMEN AND PELVIS CT WITH IV CONTRAST CT DOSE: 2066 HISTORY: perirectalpain TECHNIQUE: Multiaxial CT images of the abdomen and pelvis were performed following the IV administrat ion of 90 cc of Optiray, A dose lowering technique was utilized adhering to the principles of ALARA. COMPARISON STUDY: None FINDINGS: ABDOMEN: There is a tiny cyst at the right hepatic lobe. There are a few tiny gallstones without evid ence of acute cholecystitis. Otherwise the liver, spleen, pancreas, and adrenal glands are unremarkab le. There are a few cysts at the kidneys, largest is at the left upper kidney measuring 5 cm. There i s a tiny calcification inferior left kidney. No hydronephrosis bilaterally. There are scattered ather osclerotic calcifications. No abdominal aortic aneurysm. Pelvis: Prostate is not visualized. Urinary bladder is nondistended. There is mild sigmoid diverticul osis. No acute diverticulitis. There is mild to moderate retained stool. No bowel inflammation or obs truction seen. No free fluid, free air, or abscess. No perirectal abscess or hematoma seen. Osseous structures: There are mild degenerative changes at the lumbar spine and hips. IMPRESSION: No acute findings seen. ACT 112: Negative or not required by law. The above report was generated using voice recognition software. It may contain grammatical, syntax o r spelling errors. Electronically signed by: Landon Max M.D. 06/07/2025 9:32 AM
[2025-06-07 10:09] LABS: Appearance Urine Clear (Clear); Bacteria Urine Automated None Seen (None Seen); Glucose Urine UA Negative (Negative); RBC Urine Automated 0-2 /hpf (0-2); WBC Urine Automated 0-5 /hpf (0-5)
[2025-06-07 10:32] LABS: Base Excess VBG -1.6 mEq/L; HCO3 VBG 26 mmol/L; Oxygen Saturation VBG < 60.0 %; PCO2 VBG 52 mmHg (38-50); PO2 VBG 29 mmHg; pH VBG 7.30 (7.36-7.41)
--- NOTE | 2025-06-07 10:47 | History & Physical Report ---
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 Lyme (+) on arrival #Suspected Lyme disease Leukocytosis at 14.77 with a neutrophilic predominance Afebrile on arrival, but reported fevers up to 102 F at home Blood cultures drawn in the ED CRP elevated at 22.69 Troponin 27->23 Lactate 3.3 ->1.3 Procalcitonin WNL UA negative CXR without acute findings Respiratory BioFire negative Tickborne panel pending Initial Lyme screen positive However, patient does report h/o Lyme; IgG and IgM pending Initiate doxycycline 100 mg IV BID Acetaminophen as needed for joint pain/fevers #NOAH Creatinine 1.82 on arrival (baseline around 1.28) Avoid nephrotoxic agents where possible Suspect NOAH secondary to recent Bactrim use + poor p.o. intake in the setting of acute illness NSS 2000 mL IV given in the ED Discontinue Bactrim Dose reduce gabapentin 600 mg -> 300 mg TID Trend renal function #HTN Continue metoprolol Hold olmesartan for NOAH #Elevated total bilirubin Noted; chronic per review of prior labs; TB 2.0 on arrival Clinically, patient denies RUQ abdominal pain and CT abd/pel here negative Trend LFTs #GERD Continue PPI #HLD Continue statin Disposition: Admit to [facility] telemetry VTE PPx: Lovenox 40 mg SQ q24h History of Present Illness Chief Complaint: Illness Primary Care Provider: Jose Olmstead MD Mr. Becerril is a 74-year-old male with PMH of prostate cancer, CKD, and osteoarthritis. 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 Patient reports that his symptoms originally started with a headache and neck pain; he then developed a cough and fevers up to 102 F at home. He is taking Motrin for his headaches; no additional medications. Patient took his regular morning medicine today. He was recently started on Bactrim for a lower back cyst, but stopped taking this after he got sick. This was then represcribed by his PCP on 06/04, and he started taking it again. Patient does have a history of Lyme disease, but reports he is very good about looking for ticks. He has not noticed any rashes on his body. at bedside reports that he has been "sleeping more than he has been awake" this past week. Additionally, he endorses rib pain from coughing and pleuritic CP. No hemoptysis. Patient does have a history of DVT with prior knee surgery; no recent injuries to the legs; no history of PEs. He denies smoking, tobacco use, or recent alcohol use. Patient's vitals are stable at time of admission. ED course: Ceftriaxone 2000 mg IV NSS 2000 mL IV Acetaminophen 1000 mg IV ROS: Patient endorses fever, chills, night-sweats, body aches, generalized fatigue, ZAPATA, unsteady on feet, lightheadedness, neck pain, joint pain, chest pain (attributes to coughing), pleuritic CP, dry cough, nausea, diarrhea, and neuropathy in the feet. Patient denies rashes, tick bites, changes in vision (photophobia, blurry vision, double vision), hemoptysis, abdominal pain, vomiting, blood in the urine/stool, or burning with urination. Allergies Allergy/AdvReac Type Severity Reaction Status Date / Time adhesive Allergy Intermediate hives Verified 03/15/25 06:39 latex Allergy Mild RASH AFTER Verified 03/15/25 06:39 LONG EXPOSURE tetanus immune globulin Allergy Mild UNSURE, Verified 03/15/25 06:39 POSS RASH Home Medications Medication Instructions Recorded Confirmed Type gabapentin 800 mg tablet 600 mg PO TID 08/22/20 06/07/25 History metoprolol succinate 25 mg 50 mg PO QAM 08/22/20 06/07/25 History tablet,extended release 24 hr pravastatin 40 mg tablet 40 mg PO HS 08/22/20 06/07/25 History lwswuqy-dnlzmwrnrxlvt-ythlilwv 250 2 tab PO Q12H PRN Migraine Headache 05/11/21 06/07/25 History mg-250 mg-65 mg tablet (Excedrin Migraine) diphenhydramine HCl 50 mg capsule 50 mg PO HS PRN Sleep 05/11/21 06/07/25 History (Banophen) aspirin 81 mg tablet 81 mg PO HS 01/12/24 06/07/25 History duloxetine 20 mg capsule,delayed 30 mg PO QAM 01/12/24 06/07/25 History release sprinkle lutein 20 mg-zeaxanthin 1,000 mcg 1 cap PO QAM 01/12/24 06/07/25 History capsule omeprazole 40 mg capsule,delayed 40 mg PO QPM 01/12/24 06/07/25 History release acetaminophen 500 mg tablet 1,000 mg PO Q8 PRN Pain 06/07/25 06/07/25 History (Tylenol Extra Strength) ketoconazole 2 % topical cream 1 applic topical BID 06/07/25 06/07/25 History olmesartan 20 mg tablet 20 mg PO QAM 06/07/25 06/07/25 History sulfamethoxazole 800 1 tab PO BID 06/07/25 06/07/25 History mg-trimethoprim 160 mg tablet Past Med/Surg History Problem List (Updated 06/07/25 @ 12:44 by Tong Lim DO) Acute Lyme disease (Acute) Acidosis, lactic (Acute) SIRS (systemic inflammatory response syndrome) (Acute) Fever (Acute) NOAH (acute kidney injury) Lyme disease Status post total right knee replacement using cement Osteoarthritis of right knee Osteoarthritis, knee S/P inguinal hernia repair Peripheral neuropathy Premature atrial contraction Per records Osteoarthritis IT band syndrome Prostate cancer 2018 s/p prostatectomy Hearing loss in right ear GERD (gastroesophageal reflux disease) controlled, stable per pt Hypertriglyceridemia Disseminated idiopathic skeletal hyperostosis CKD (chronic kidney disease), stage III Per records Cataract Back pain Arthritis Prostate ca (Acute) Medical History PVC's (premature ventricular contractions) controlled w/ metoprolol History of prostate cancer 2018 s/p prostatectomy PAC (premature atrial contraction) per records, no cardio Peripheral neuropathy feet Osteoarthritis Dyslipidemia GERD (gastroesophageal reflux disease) CKD (chronic kidney disease) per records; pt denies History of COVID-19 (2020) no hosp; resolved Migraines Hx of deep venous thrombosis 2022- was on Xarelto x1 month then discontinued Parathyroid disorder s/p parathyroidectomy secondary to 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 Kraus 10/02/2020 LMA#5 Hx of blepharoplasty Hx of parathyroidectomy left side H/O cataract removal with insertion of prosthetic lens R/L H/O oral surgery History of appendectomy History of cardiac cath (1999) having palpitations and found to have PVC's, [facility], denies stents; f/u PCP Hx of colonoscopy Status post gamma knife treatment for acoustic neuroma 2004 H/O prostatectomy 02/20/2018 prostate cancer Family History Mother Breast cancer Hypertension Father Cancer Other Diabetes Social History Smoking Status: Never smoker Second Hand Exposure: No; Do You Dip or Chew Tobacco: No; Hx Alcohol Use: No Hx Substance Use: No Preferred Language: Cambodian Communication Ability: Effective Allergist Immunologist Required: No Beliefs That Will Affect Care: None marital status: Current Living Situation: Spouse and Family current occupational status: retired How many Children do You have: 2 Feels Safe at Home: Yes Safety Concerns: Feels Safe At This Time Assistive Devices: Denture - Upper, Denture - Lower and Glasses Review of Systems Review of Systems: See HPI above Physical Exam Physical Exam: General: no acute distress; pleasant affect; at bedside; non-toxic appearing; cooperative; SpO2 96% on RA HEENT: normocephalic, atraumatic; no scleral icterus; PERRLA; vision and hearing intact Neck: supple; trachea midline Skin: warm, dry without signs of tenting; no cyanosis; no rashes appreciated on the chest wall, abdomen, flanks, or back; no bruising, lesions, or erythema noted CV: chest wall NTP; RRR; S1/S2 normal; no murmurs/rubs/gallops; pulses intact and symmetric at radial, DP, and PT Lungs: no acute respiratory distress; symmetrical chest wall expansion; clear breath sounds across all lung elder w/o adventitious sounds; no wheezing ABD: Soft, NTP; BS present; no rebound/guarding; no distention MSK: no tics or fasciculations; +1 pitting edema around the ankles bilaterally, nonerythematous Neuro: A&Ox3; normal mood and affect; fluent speech; no focal deficits; diminished sensation in the lower extremities bilaterally Results & Data Results & Data Vital Signs (Past 12 Hours) Vital Signs Temp Pulse Pulse Resp BP BP Pulse Ox 06/07/25 10:00 85 24 120/75 94 06/07/25 08:29 106 H 06/07/25 08:28 102 H 23 124/72 94 06/07/25 07:45 36.3 C L 111 H 18 115/71 94 O2 Del Method 06/07/25 10:00 Room Air 06/07/25 08:29 06/07/25 08:28 06/07/25 07:45 Room Air Laboratory Results Abnormal lab results 06/07/25 06/07/25 06/07/25 Range/Units 08:12 08:22 09:45 WBC 14.77 H (4.8-10.8) K/ul MPV 9.2 L (9.4-12.4) fL Neut # (Auto) 11.78 H (1.40-6.50) K/uL [place] # (Auto) 1.37 H (0.11-0.59) K/uL VBG pH (7.36-7.41) VBG pCO2 (38-50) mmHg POC Chloride 99 L (101-112) mmol/L POC BUN 25 H (7-18) mg/dl Creatinine 1.82 H (0.6-1.4) mg/dl POC Creatinine 2.0 H (0.6-1.3) mg/dl Glucose 116 H (70-99(Fasting)) mg/dl POC Glucose (other) 122 H (70-99) mg/dl Lactate (0.4-2.0) mmol/L POC Ioniz Calcium Ruth 1.03 L (1.12-1.32) mmol/l Total Bilirubin 2.0 H (0.2-1.0) mg/dl Troponin I High Sens 27.7 H (0-20) pg/ml C-Reactive Protein 22.69 H (0-0.5) mg/dl Ur Specific [place] > 1.045 H (1.000-1.030) Urine Protein 1+ H (Negative) Urine Ketones Trace H (Negative) Urine Blood Trace H (Negative) U Hyaline Cast (Auto) 3-5 H (0-2) /lpf U Epithel Cells (Auto) 3-5 H (0-2) /hpf Lyme Disease Screen Positive H (Negative) 06/07/25 06/07/25 Range/Units 10:01 10:24 WBC (4.8-10.8) K/ul MPV (9.4-12.4) fL Neut # (Auto) (1.40-6.50) K/uL [place] # (Auto) (0.11-0.59) K/uL VBG pH 7.30 L (7.36-7.41) VBG pCO2 52 H (38-50) mmHg POC Chloride (101-112) mmol/L POC BUN (7-18) mg/dl Creatinine (0.6-1.4) mg/dl POC Creatinine (0.6-1.3) mg/dl Glucose (70-99(Fasting)) mg/dl POC Glucose (other) (70-99) mg/dl Lactate 3.3 H* (0.4-2.0) mmol/L POC Ioniz Calcium Rtuh (1.12-1.32) mmol/l Total Bilirubin (0.2-1.0) mg/dl Troponin I High Sens 23.9 H (0-20) pg/ml C-Reactive Protein (0-0.5) mg/dl Ur Specific [place] (1.000-1.030) Urine Protein (Negative) Urine Ketones (Negative) Urine Blood (Negative) U Hyaline Cast (Auto) (0-2) /lpf U Epithel Cells (Auto) (0-2) /hpf Lyme Disease Screen (Negative) Diagnostic Findings Abdomen/Pelvis CT 06/07/25 08:[address] WITH IV CONTRAST CT DOSE: 2066 HISTORY: perirectalpain TECHNIQUE: Multiaxial CT images of the abdomen and pelvis were performed following the IV administration of 90 cc of Optiray, A dose lowering technique was utilized adhering to the principles of ALARA. COMPARISON STUDY: None FINDINGS: ABDOMEN: There is a tiny cyst at the right hepatic lobe. There are a few tiny gallstones without evidence of acute cholecystitis. Otherwise the liver, spleen, pancreas, and adrenal glands are unremarkable. There are a few cysts at the kidneys, largest is at the left upper kidney measuring 5 cm. There is a tiny calcification inferior left kidney. No hydronephrosis bilaterally. There are scattered atherosclerotic calcifications. No abdominal aortic aneurysm. Pelvis: Prostate is not visualized. Urinary bladder is nondistended. There is mild sigmoid diverticulosis. No acute diverticulitis. There is mild to moderate retained stool. No bowel inflammation or obstruction seen. No free fluid, free air, or abscess. No perirectal abscess or hematoma seen. Osseous structures: There are mild degenerative changes at the lumbar spine and hips. IMPRESSION: No acute findings seen. ACT 112: Negative or not required by law. The above report was generated using voice recognition software. It may contain grammatical, syntax or spelling errors. Electronically signed by: Landon Max M.D. 06/07/2025 9:32 AM Chest X-Ray 06/07/25 08:03 SINGLE VIEW CHEST CLINICAL HISTORY: Fever FINDINGS: 2 AP, portable, upright chest radiographs are compared to study dated 06/05/2025. The heart is mildly enlarged noting atherosclerotic calcification of the thoracic aorta. The pulmonary vasculature is noncongested. There is mild bibasilar scarring/atelectasis. The lungs and pleural spaces are otherwise clear. No pneumothorax is seen. The skeletal structures are osteopenic. The bony thorax is grossly intact. IMPRESSION: No acute cardiopulmonary abnormality is identified. ACT 112: Negative or not required by law. Electronically signed by: Young Sanford M.D. 06/07/2025 8:[address] 06/07/25 08:03 CT SCAN OF THE BRAIN WITHOUT IV CONTRAST CLINICAL HISTORY: Headache. COMPARISON STUDY: MRI of the brain dated 07/29/2021 TECHNIQUE: Unenhanced axial CT scan of the brain is performed from the vertex to the skull base. Images are reviewed in the axial, sagittal, coronal planes. A dose lowering technique was utilized adhering to the principles of ALARA. CT DOSE: 2066.3 mGy.cm FINDINGS: Brain parenchyma: There is age-related involutional change noting mild subcortical and periventricular microangiopathic disease. There is no hemorrhage, mass effect, or evidence of acute territorial ischemia by CT criteria. Monk-white matter differentiation is preserved. No extra-axial fluid collection is seen. Ventricles, sulci, cisterns: Prominent secondary to involutional change. Intracranial vasculature: There is atherosclerotic calcification of the [place] carotid and vertebral arteries. Calvarium: Unremarkable. Sinuses and mastoids: There is trace mucosal thickening within the frontal and ethmoid sinuses. The mastoid air cells are well pneumatized. Orbits: The bony orbits are grossly intact. There are bilateral ocular lens implants. IMPRESSION: There is no hemorrhage, mass effect, or evidence of acute territorial ischemia by CT criteria. ACT 112: Negative or not required by law. Electronically signed by: Young Sanford M.D. 06/07/2025 9:18 AM ECG Additional Comments: ECG revealed sinus tachycardia at 108 bpm; QTc 452 Code Status & VTE Plan Code Status Full code VTE Prophylaxis Plan VTE Prophylaxis will be ordered: Yes Supervising Physician Co-Signing Physician Notes PA Supervision Note: I personally saw and examined the patient. I verified all vieira points and agree with SPENSER Ramos with the following exceptions and/or additions: S-Pt here with fevers, headache, diffuse arthralgias,, and cough x 7 days, no other symptoms-Has had poor appetite, no abd pain no diarrhea and in fact has not moved his bowels in 5 days until today. No sore throat, no rashes. He has tenderness over his sternum that reproduces the pain he has had with deep inspiration from coughing so much last week. He was treated for a perirectal cyst this past week with Bactrim and said it reduced in size and is no longer painful History and ROS otherwise reviewed as above O- Vitals reviewed Gen: [AAOx3, NAD] HEENT: [anicteric sclerae, EOMI] CV: [RRR no mgr nl S1S2, +TTP over costo-sternal junctions] Pulm: [CTAB no wcr] Abd: [+BS soft NT ND no masses or hernias] Ext: [no edema, 2+ DP pulses] Skin: [no rashes, warm/dry] Neuro: [full strength throughout] CBC, BMP, LFTs, lactate, Lyme titer, CXR, CT head,. CT Abd/pel reviewed A/P-74 yo male here with likely acute Lyme disease -treat with doxy and monitor for improvement in symptoms otherwise supportive care, follow Bcxs PG Care Time/CCT Total # of Minutes Spent Total Time Spent with Patient: Total time spent is greater than 50% in coordination of care (as documented) at patient's floor/unit and/or counseling patient: C[place] [address] INT INP/OBS CARE MIN Patient Type Established Medical Decision Making High Complexity Diagnoses Lyme disease A69.20 NOAH (acute kidney injury) N17.9
[2025-06-07 10:56] LABS: Procalcitonin 0.45 ng/ml (0-0.5)
[2025-06-07] MEDS: DOXYCYCLINE HYCLATE 100 MG CAP PO STA (10:57)
[2025-06-07] MEDS: cefTRIAXone SODIUM 2,000 MG/50 ML BAG IV STA (10:59)
[2025-06-07] MEDS: SODIUM CHLORIDE 0.9% 1,000 ML IV ONE (11:02)
[2025-06-07 11:19] LABS: Lyme Screen Rflx Confirmation Positive (Negative)
[2025-06-07] MEDS: ONDANSETRON INJ 2 MG/ML 2 ML VIAL IV STA (11:47)
[2025-06-07 12:30] LABS: Chlamydia pneumoniae PCR Not Detected (NotDetected); Coronavirus 229E PCR Not Detected (NotDetected); Coronavirus CoV-2 (COVID19)PCR Not Detected (NotDetected); Coronavirus HKU1 PCR Not Detected (NotDetected); Coronavirus NL63 PCR Not Detected (NotDetected); Coronavirus OC43PCR Not Detected (NotDetected); Human Metapneumovirus PCR Not Detected (NotDetected); Parainfluenza Virus 1 PCR Not Detected (NotDetected); Parainfluenza Virus 2 PCR Not Detected (NotDetected); Parainfluenza Virus 3 PCR Not Detected (NotDetected); Parainfluenza Virus 4 PCR Not Detected (NotDetected); Respiratory Syncytial VirusPCR Not Detected (NotDetected); Rhinovirus/Enterovirus PCR Not Detected (NotDetected)
[2025-06-07 13:13] LABS: Lyme Ab IgG 2nd Tier Confirm Positive (Negative)
[2025-06-07 13:14] LABS: Lyme Ab IgM 2nd Tier Confirm Negative (Negative)
[2025-06-07] MEDS ORDERED: ONDANSETRON INJ 2 MG/ML 2 ML VIAL IV PRN (13:45)
[2025-06-07] MEDS: GABAPENTIN 300 MG CAP PO SCH (14:13)
[2025-06-07] MEDS: ACETAMINOPHEN 325 MG TAB PO PRN (18:57)
[2025-06-07] MEDS: ASPIRIN 81 MG ECTAB PO SCH (20:56)
[2025-06-07] MEDS: DICLOFENAC SOD 1% GEL 100 GM TUBE EXT SCH (20:57)
[2025-06-07] MEDS ORDERED: DOXYCYCLINE HYCLATE 100 MG CAP PO SCH (21:00)
[2025-06-07] MEDS: DOXYCYCLINE HYCLATE 100 MG in DEXTROSE 5% MINI-B 100 ML IV SCH (21:00)
[2025-06-07] MEDS: PRAVASTATIN SOD 40 MG TAB PO SCH (21:09)
[2025-06-07] MEDS: ENOXAPARIN INJ 40 MG/0.4 ML SYR SQ SCH (21:10)
[2025-06-07] MEDS: METOPROLOL TARTRATE 1 MG/ML VIAL IV STA (21:44)
[2025-06-08 06:27] LABS: Hematocrit (blood only) 37.6 % (42.0-52.0); Hemoglobin 12.6 g/dl (14.0-18.0); Immature Granulocytes # (auto) 0.05 K/uL (0.01-0.20); Immature Granulocytes % (auto) 0.5 %; Mean Corpuscular Hemoglobin 29.2 pg (25.0-34.0); Mean Corpuscular Volume 87.2 fL (80.0-100.0); Platelet Count 202 K/uL (130-400); RDW Standard Deviation 42.0 fL (36.4-46.3); Red Blood Count 4.31 M/uL (4.70-6.10); White Blood Count 10.08 K/ul (4.8-10.8)
[2025-06-08 06:54] LABS: Alanine Aminotransferase 6.0 U/L (7-52); Albumin Globulin Ratio 1.0 (0.9-2); Alkaline Phosphatase 48.0 U/L (34-104); Anion Gap 9.0 (3-11); Bilirubin,Total 1.2 mg/dl (0.2-1.0); Blood Urea Nitrogen 22.0 mg/dl (6-23); Calcium 7.9 mg/dl (8.6-10.3); Carbon Dioxide 25.0 mmol/L (21-32); Chloride 102.0 mmol/L (98-107); Creatinine Clr Calc Pharmacy 47.6 ml/min; Globulin 3.2 gm/dl (2.5-4.0); Glucose 117.0 mg/dl (70-99(Fasting)); Potassium 3.9 mmol/L (3.5-5.1); Sodium 136.0 mmol/L (136-145); Total Protein 6.5 gm/dl (6.0-8.3)
[2025-06-08] MEDS: METOPROLOL SUCC 50MG EXT REL TAB PO SCH (07:53)
--- NOTE | 2025-06-08 07:53 | Hospitalist Progress Note ---
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 Lyme (+) on arrival. Had 2 episodes of atrial fibrillation last night with a history of similar episodes in the past. #Atrial fibrillation: Echocardiographic findings is normal. TSH is 6.355. Consult cardiology Consult oncology given history of Kevin disease/factor IX deficiency to see if Eliquis is appropriate Ordered T4. #Suspected Lyme disease Leukocytes is normal with a neutrophilic predominance Consult cardiology Tickborne panel pending Initial Lyme screen positive Continue doxycycline 100 mg IV BID Acetaminophen as needed for joint pain/fevers #NOAH Creatinine 1.82 on arrival (baseline around 1.28) 1.61 today. Ordered bladder scan. RL 80mls/hr KCL 10meq PO Avoid nephrotoxic agents where possible Suspect NOAH secondary to recent Bactrim use + poor p.o. intake in the setting of acute illness Trend renal function #HTN Continue metoprolol Hold olmesartan for NOAH #Elevated total bilirubin Noted; chronic per review of prior labs; TB 2.0 on arrival, 1.2 today Clinically, patient denies RUQ abdominal pain and CT abd/pel here negative Trend LFTs. #GERD Continue PPI #HLD Continue statin Disposition: Continue stay on med tele. VTE PPx: Lovenox 40 mg SQ q24h Admission and Anticipated Discharge Date Admission Date: June 07, 2025 Supervising Physician Co-Signing Physician Notes Resident supervision note I personally examined the patient and verified all vieira points of history and exam, discussed case, and agree with decision making with Dr. Erickson with the following additions/exceptions: S-patient feeling better today, appetite improved, no shaking chills or fevers. He did feel heart palpitations when he was in rapid A-fib overnight. 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 His Lyme disease is improving -Continue doxycycline, follow blood cultures - Consult cardiology, check echo, check TSH, replace electrolytes with magnesium and potassium to optimize for A-fib, monitor on telemetry, start Eliquis if okay with hematology given history of factor IX deficiency and easy bleeding Subjective Patient had 2 episode of atrial fibrillation last night, one from 19:24 to 19:32, second from 21:03 to 21:46, spontaneously converted and has remained in sinus. He reports similar episodes in the past too but his provider told him there's no concern. He felt palpitations, and heart pounding to his chest. Other than that, his appetite is good today No H/o chest pain, recurrent bleeding, extreme stress,weakness, slurred speech. Physical Exam Constitutional: No acute distress; pleasant affect; cooperative ENMT: normocephalic, atraumatic; no scleral icterus; PERRLA; vision and hearing intact Neck: supple; trachea midline Respiratory: o acute respiratory distress; symmetrical chest wall expansion; clear breath sounds across all lung elder w/o adventitious sounds; no wheezing Cardiovascular: chest wall NTP; RRR; S1/S2 normal; no murmurs/rubs/gallops; pulses intact and symmetric at radial, DP, and PT Gastrointestinal (Abdomen): Soft, NTP; BS present; no rebound/guarding; no distention Musculoskeletal: +1 pitting edema around the ankles bilat erally, nonerythematous Skin: warm, dry without signs of tenting; no cyanosis; no rashes appreciated on the chest wall, abdomen, flanks, or back; no bruising, lesions, or erythema noted Neurologic: A&Ox3; normal mood and affect; fluent speech; no focal deficits; diminished sensation in the lower extremities bilaterally Results & Data Results & Data Vital Signs (Past 12 Hours) Vital Signs Temp Pulse Pulse Resp BP BP BP 06/08/25 06:08 91 H 06/08/25 05:53 37.2 C 06/08/25 03:56 38.2 C H 102 H 18 145/84 H 06/07/25 22:08 37.3 C 102 H 16 111/72 06/07/25 22:06 102 H 111/72 06/07/25 21:48 111 H 06/07/25 21:44 123 H 103/68 06/07/25 21:43 37.3 C 06/07/25 20:27 Pulse Ox O2 Del Method 06/08/25 06:08 06/08/25 05:53 06/08/25 03:56 96 Room Air 06/07/25 22:08 96 Room Air 06/07/25 22:06 06/07/25 21:48 06/07/25 21:44 06/07/25 21:43 06/07/25 20:27 Room Air Laboratory Results Reviewed CBC, CMP, TSH, heat CT, A/P CT, chest Xray.
[2025-06-08] MEDS: LACTATED RINGER'S 1,000 ML IV SCH (12:36)
[2025-06-08] MEDS: POTASSIUM CHLORIDE 10 MEQ TABCR PO ONE (12:36)
[2025-06-08 12:50] LABS: Magnesium 1.7 mg/dl (1.7-2.4)
[2025-06-08 13:03] LABS: Thyroid Stimulating Hormone 6.355 uIu/ml (0.300-4.500)
--- NOTE | 2025-06-08 14:34 | XCELERA ---
[id number] \\[id number]
[2025-06-08] MEDS: MAGNESIUM SULFATE / D5W 1 GM/100 ML BAG IV SCH (16:43)
--- NOTE | 2025-06-08 19:11 | Billing Data ---
Date of Service June 08, 2025 Coding Level of Care Code 06860 SUB INP/OBS CARE MIN
[2025-06-09 06:34] LABS: Hematocrit (blood only) 40.8 % (42.0-52.0); Hemoglobin 13.6 g/dl (14.0-18.0); Mean Corpuscular Hemoglobin 29.3 pg (25.0-34.0); Mean Corpuscular Volume 87.9 fL (80.0-100.0); Platelet Count 248 K/uL (130-400); RDW Standard Deviation 42.2 fL (36.4-46.3); Red Blood Count 4.64 M/uL (4.70-6.10); White Blood Count 7.72 K/ul (4.8-10.8)
[2025-06-09 07:05] LABS: Alanine Aminotransferase 11.0 U/L (7-52); Albumin Globulin Ratio 1.1 (0.9-2); Alkaline Phosphatase 54.0 U/L (34-104); Anion Gap 7.0 (3-11); Bilirubin,Total 0.8 mg/dl (0.2-1.0); Blood Urea Nitrogen 16.0 mg/dl (6-23); Calcium 8.6 mg/dl (8.6-10.3); Carbon Dioxide 29.0 mmol/L (21-32); Chloride 102.0 mmol/L (98-107); Creatinine Clr Calc Pharmacy 62.3 ml/min; Globulin 3.5 gm/dl (2.5-4.0); Glucose 131.0 mg/dl (70-99(Fasting)); Magnesium 2.2 mg/dl (1.7-2.4); Potassium 3.8 mmol/L (3.5-5.1); Sodium 138.0 mmol/L (136-145); Total Protein 7.2 gm/dl (6.0-8.3)
[2025-06-09 08:29] VITALS: RESP 19
[2025-06-09] MEDS: POTASSIUM CHLORIDE CRTAB 20 MEQ TABCR PO STA (09:06)
[2025-06-09 11:40] VITALS: TEMP 98.2; O2SAT 94
--- NOTE | 2025-06-09 13:42 | Cardiology Consultation ---
Date of Consultation June 09, 2025 Assessment & Plan (1) Paroxysmal atrial fibrillation: (2) Lyme disease: Plan 1. Paroxysmal atrial fibrillation: He has had 1 documented episode of atrial fibrillation here, it lasted about an hour, the heart rate was somewhat fast (125 bpm) and although the patient did not notice the rhythm he was not terribly bothered by it. Although it is tempting to blame this arrhythmia on his current illness I am concerned that he may have a background of paroxysmal atrial fibrillation based on him telling me that the symptoms are similar to what he is experienced before and were diagnosed as atrial premature beats. Although I am not terribly concerned about 1 hour of atrial fibrillation and if that is all he has I would not plan on anticoagulation. I would like to have some confidence that he does not have frequent episodes however and think that some type of long-term monitoring is indicated. I would like to start with a 30-day monitor, I will then arrange an office visit when we have that result and we can decide whether we need to perform long-term monitoring (using an implantable monitor) to determine his need for anticoagulation. If he needs anticoagulation for his hematologic disorder then I do not think further testing is necessary but I believe that is not decided as yet. 2. Lyme disease: I doubt his Lyme disease has anything to do with this arrhythmia. History of Present Illness Reason for Consultation: Atrial fibrillation Attending Physician: Flora Mane MD History of Present Illness This is a 74-year-old male with a history of chronic kidney disease, osteoarthritis, prostate cancer who presented to the emergency room on June 07, 2025 with a week of fever headache and cough. He did have a positive Lyme test on arrival but does have a history of treated Lyme disease. His electrocardiogram on presentation showed sinus rhythm at 87 bpm and was essentially normal with left axis deviation. He had an echocardiogram done June 08, 2025 which was essentially normal with no wall motion abnormalities. An electrocardiogram however done the day after presentation on June 08, 2025 showed atrial fibrillation with a heart rate of 125 bpm, on review of telemetry he had about 1 hour of atrial fibrillation starting at around 9 PM on June 07, 2025. He apparently was aware of it, he described it as "an animal running around my chest", but it was not terribly bothersome. He does have a prior history of palpitations but to my knowledge he has no history of documented atrial fibrillation. His prior palpitations have been diagnosed as premature beats I believe however he feels the symptoms were similar so it is possible he has a long history of atrial fibrillation that has not been diagnosed. His home medications include metoprolol succinate 50 mg daily and pravastatin 40 mg at bedtime, aspirin 81 mg daily and some noncardiac medications. He is feeling much better now, he is anxious to go home and has been fairly active in his room and has had no exertional symptoms. Prior to admission or since admission he has no other cardiovascular symptoms such as exertional chest discomfort, shortness of breath or heart failure symptoms. Allergies Allergy/AdvReac Type Severity Reaction Status Date / Time adhesive Allergy Intermediate hives Verified 03/15/25 06:39 latex Allergy Mild RASH AFTER Verified 03/15/25 06:39 LONG EXPOSURE tetanus immune globulin Allergy Mild UNSURE, Verified 03/15/25 06:39 POSS RASH Home Medications Medication Instructions Recorded Confirmed Type gabapentin 800 mg tablet 600 mg PO TID 08/22/20 06/07/25 History metoprolol succinate 25 mg 50 mg PO QAM 08/22/20 06/07/25 History tablet,extended release 24 hr pravastatin 40 mg tablet 40 mg PO HS 08/22/20 06/07/25 History [id number] 250 2 tab PO Q12H PRN Migraine Headache 05/11/21 06/07/25 History mg-250 mg-65 mg tablet (Excedrin Migraine) diphenhydramine HCl 50 mg capsule 50 mg PO HS PRN Sleep 05/11/21 06/07/25 History (Banophen) aspirin 81 mg tablet 81 mg PO HS 01/12/24 06/07/25 History duloxetine 20 mg capsule,delayed 30 mg PO QAM 01/12/24 06/07/25 History release sprinkle lutein 20 mg-zeaxanthin 1,000 mcg 1 cap PO QAM 01/12/24 06/07/25 History capsule omeprazole 40 mg capsule,delayed 40 mg PO QPM 01/12/24 06/07/25 History release acetaminophen 500 mg tablet 1,000 mg PO Q8 PRN Pain 06/07/25 06/07/25 History (Tylenol Extra Strength) ketoconazole 2 % topical cream 1 applic topical BID 06/07/25 06/07/25 History olmesartan 20 mg tablet 20 mg PO QAM 06/07/25 06/07/25 History sulfamethoxazole 800 1 tab PO BID 06/07/25 06/07/25 History mg-trimethoprim 160 mg tablet Patient History Medical History Right inguinal hernia Vernon disease PVC's (premature ventricular contractions) controlled w/ metoprolol History of prostate cancer 2017 s/p prostatectomy PAC (premature atrial contraction) per records, no cardio Peripheral neuropathy feet Osteoarthritis Dyslipidemia History of COVID-19 (2020) no hosp; resolved Migraines Hx of deep venous thrombosis 2022- was on Xarelto x1 month then discontinued Parathyroid disorder s/p 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 Kraus 10/02/2020 LMA#5 Hx of blepharoplasty Hx of parathyroidectomy left side H/O cataract removal with insertion of prosthetic lens R/L H/O oral surgery History of appendectomy History of cardiac cath (1999) having palpitations and found to have PVC's, [facility], denies stents; f/u PCP Hx of colonoscopy Status post gamma knife treatment for acoustic neuroma 2004 H/O prostatectomy 02/20/2018 prostate cancer Family History Mother Breast cancer Hypertension Father Cancer Other Diabetes Social History Smoking Status: Never smoker Second Hand Exposure: No; Do You Dip or Chew Tobacco: No; Hx Alcohol Use: No Hx Substance Use: No Preferred Language: [place]ian Communication Ability: Effective Inspector Floor Sub Assembly Required: No Beliefs That Will Affect Care: None marital status: Current Living Situation: Spouse and Family current occupational status: retired How many Children do You have: 2 Feels Safe at Home: Yes Safety Concerns: Feels Safe At This Time Assistive Devices: Denture - Upper, Denture - Lower and Glasses Review of Systems Review of Systems: All systems reviewed & are unremarkable except as noted in HPI & below Physical Exam Physical Exam: Constitutional: Alert, cooperative and in no distress. HEENT: Unremarkable Neck: No jugular venous distention, carotid pulses are normal and equal bilaterally without bruits. Pulmonary: Clear to auscultation bilaterally. Cardiac: Regular rhythm with no murmur, gallop or rub. Abdomen: Soft, nontender with normal bowel sounds. Extremities: No edema. Neurologic: No focal findings. Gait is steady in the room. Skin: No rash, ecchymoses or petechiae. Results & Data Vital Signs (Past 12 Hours) Vital Signs Temp Pulse Pulse Resp BP Pulse Ox O2 Del Method 06/09/25 11:39 36.8 C 86 19 130/80 94 Room Air 06/09/25 09:00 85 06/09/25 08:29 37 C 82 19 129/76 95 Room Air 06/09/25 03:45 36.8 C 83 18 150/86 H 96 Room Air Laboratory Results Cardiac Enzymes 06/09/25 Range/Units 06:19 AST 19 (13-39) U/L CBC 06/09/25 Range/Units 06:19 WBC 7.72 (4.8-10.8) K/ul RBC 4.64 L (4.70-6.10) M/uL Hgb 13.6 L (14.0-18.0) g/dl Hct 40.8 L (42.0-52.0) % Plt Count 248 (130-400) K/uL Comprehensive Metabolic Panel 06/09/25 Range/Units 06:19 Sodium 138 (136-145) mmol/L Potassium 3.8 (3.5-5.1) mmol/L Chloride 102 (98-107) mmol/L Carbon Dioxide 29 (21-32) mmol/L BUN 16 (6-23) mg/dl Creatinine 1.23 D (0.6-1.4) mg/dl Glucose 131 H (70-99(Fasting)) mg/dl Calcium 8.6 (8.6-10.3) mg/dl AST 19 (13-39) U/L ALT 11 (7-52) U/L Alkaline Phosphatase 54 (34-104) U/L Total Protein 7.2 (6.0-8.3) gm/dl Albumin 3.7 (3.4-5.0) gm/dl Intake and Output 06/08/25 06/09/25 06/09/25 22:59 06:59 14:59 Intake Total 540 / 1836 1196 / 1836 749.333 / 749.333 Balance 540 / 1836 1196 / 1836 749.333 / 749.333 Intake: IV 300 / 1396 996 / 1396 749.333 / 749.333 Doxycycline Hyclate 100 mg In 100 / 200 100 / 100 Dextrose 5% Mini-B 100 ml @ 50 mls/hr IV Q12H YONG Rx#:[id number] Lactated Ringer's 1,000 ml @ 80 996 / 996 649.333 / 649.333 mls/hr IV .[id number] YONG Rx#: [id number] Magnesium Sulfate / D5w 1 gm In 200 / 200 100 ml @ 50 mls/hr IV Q2H YONG Rx#:[id number] Oral 240 / 440 200 / 440 Other: # Unmeasured Voids 2 Weight 106 kg Weight Measurement Method Standing Scale Diagnostic Findings Telemetry: 1 episode of atrial fibrillation on June 07, 2025 as described in the HPI, none since. Sinus rhythm otherwise. PG Care Time/CCT Total # of Minutes Spent Total Time Spent with Patient: Total time spent is greater than 50% in coordination of care (as documented) at patient's floor/unit and/or counseling patient: Coding Level of Care Code 25383 INT INP/OBS CARE 2/55MIN Diagnoses Paroxysmal atrial fibrillation I48.0 Lyme disease A69.20
--- NOTE | 2025-06-09 15:09 | Discharge Summary ---
Date of Service June 09, 2025 Admission HPI Per Admitting Provider Mr. Becerril is a 74-year-old male with PMH of prostate cancer, CKD, and osteoarthritis. He presented on 06/07 for generalized weakness, headache, cough, and fevers x 1 week [employer]. Patient reports that his symptoms originally started with a headache and neck pain; he then developed a cough and fevers up to 102 F at home. He is taking Motrin for his headaches; no additional medications. Patient took his regular morning medicine today. He was recently started on Bactrim for a lower back cyst, but stopped taking this after he got sick. This was then represcribed by his PCP on 06/04, and he started taking it again. Patient does have a history of Lyme disease, but reports he is very good about looking for ticks. He has not noticed any rashes on his body. at bedside reports that he has been "sleeping more than he has been awake" this past week. Additionally, he endorses rib pain from coughing and pleuritic CP. No hemoptysis. Patient does have a history of DVT with prior knee surgery; no recent injuries to the legs; no history of PEs. He denies smoking, tobacco use, or recent alcohol use. Patient's vitals are stable at time of admission. ED course: Ceftriaxone 2000 mg IV NSS 2000 mL IV Acetaminophen 1000 mg IV ROS: Patient endorses fever, chills, night-sweats, body aches, generalized fatigue, ZAPATA, unsteady on feet, lightheadedness, neck pain, joint pain, chest pain (attributes to coughing), pleuritic CP, dry cough, nausea, diarrhea, and neuropathy in the feet. Patient denies rashes, tick bites, changes in vision (photophobia, blurry vision, double vision), hemoptysis, abdominal pain, vomiting, blood in the urine/stool, or burning with urination. Principal Diagnosis New onset atrial fibrillation Suspected Lyme disease Discharge Exam Constitutional WD/WN, vitals as above Eyes PERRL, conjunctivae normal, anicteric sclerae ENMT external ear and nose normal, oropharynx normal Neck trachea midline, no thyromegaly Respiratory normal respiratory effort, lungs clear to auscultation Cardiovascular RRR, no murmur, no edema Gastrointestinal (Abdomen) normal bowel sounds, soft, nontender, no hepatosplenomegaly Musculoskeletal no cyanosis or clubbing, extremities motor strength 5/5 Skin no rashes, warm and dry Neurologic patellar DTR's 2+ bilat, sensation intact and PERRL, EOMI, accommodation nl, no face palsy, no dysarthria Psychiatric A+Ox3, euthymic affect Genitourinary no testicular masses, no penis abnormality Lymphatic no cervical or axillary lymphadenopathy Discharge Data Allergies Allergy/AdvReac Type Severity Reaction Status Date / Time adhesive Allergy Intermediate hives Verified 03/15/25 06:39 latex Allergy Mild RASH AFTER Verified 03/15/25 06:39 LONG EXPOSURE tetanus immune globulin Allergy Mild UNSURE, Verified 03/15/25 06:39 POSS RASH Consultations 06/07/25 10:50 ED Decision to Admit Stat 06/08/25 16:27 Consult Cardiology Routine 06/08/25 16:45 Consult Oncology Routine Ordered Studies 06/07/25 08:03 CT abd pelvis IV con only Stat CT head/brain wo con Stat Echocardiogram Hospital Course (1) Lyme disease: (2) NOAH (acute kidney injury): (3) New onset atrial fibrillation: Plan This patient is a 74-year-old male who presented on 06/07 for fever, chills, cough, and headache x 1 week [employer]. Lyme (+) on arrival. Had 2 episodes of atrial fibrillation 06/07 with a history of similar episodes in the past. # Paroxysmal atrial fibrillation: Echocardiographic findings are normal. Follow up with cardiology after having a 30-day cardiac event monitor to assess burden of atrial fibrillation Follow up with oncology until then hold on the plan for starting on Eliquis with the follow up on his coagulation panel because he reports a history of a bleeding disorder with Dana Disease but no other significant bleeding history. He also reports a history of DVT after knee surgery. Continue Metoprolol 50 mg Repeat TSH with the PCP as was mildly elevated but free T4 normal. #Factor IX deficiency/Dana disease Patient reports history of such discovered in his 20s when he was in the [place] a nd had easy bleeding. Since that time, he has not had any major bleeding issues and in fact had an acute DVT in the LLE after knee surgery 3 years ago. Consulted hematology for further evaluation - Recommends checking factor IX activity levels, factor IX antigen level, and PTT - Follow-up with hematology as an outpatient-he likely has mild disease and if so based on activity and antigen levels, he could safely start Eliquis if needed as per cardiology #Suspected Lyme disease Leukocytes is normal with a neutrophilic predominance Anaplasmosis PCR/babesiosis PCR/other tickborne illnesses pending Lyme screen and IgG positive, IgM negative Continue doxycycline 100 mg BID for 12 more days for total of 14 for acute Lyme disease. Acetaminophen as needed for joint pain/fever. #NOAH Creatinine 1.82 on arrival (baseline around 1.28) 1.23 today. Not retaining urine Avoid nephrotoxic agents where possible. Suspect NOAH secondary to recent Bactrim use + poor p.o. intake in the setting of acute illness Okay to resume all losartan on discharge #HTN Continue metoprolol Continue olmesartan. #Elevated total bilirubin Noted; chronic per review of prior labs; TB 2.0 on arrival, 0.8 today. Clinically, patient denies RUQ abdominal pain and CT abd/pel here negative #GERD Continue PPI #HLD Continue statin Was on Lovenox 40 mg SQ q24h for VTE prophylaxis during his hospital stay. Total Time Total Time Spent Total Time Spent (In Minutes): See attending attestation. Discharge Plan Discharge Items Patient Disposition: Home - Self-Care Reason For Visit: FEVER, CHILLS; TICK V. URI Discharge Diagnosis: 1. New onset Atrial Fibrillation 2. Suspected Lyme disease Condition on Discharge: Fair Activity: Per Instructions section Non-emergency contact: Primary Care Provider, Coloring Room Worker and Oncologist Call non-emergency contact if: your symptoms worsen and your pain is not controlled Follow-up/Referrals: Bryan Frye MD [Physician] - (Please follow up with him in 2 weeks for your atrial fibrillation- Please call for an appointment.) Mendel Quinn MD [Physician] - (Follow up in 2 weeks for Hemophilia- Please call for an appointment.) Jose Olmstead MD [Primary Care Provider] - (Please follow up with him in 1-2 weeks.) Diet: Heart Healthy Addtl Attending Provider Instructions: You were admitted to the hospital for suspected lyme disease and new onset atrial fibrillation. You were treated with doxycycline. You were deemed safe for discharge when your symptoms were improved and vitals are normal. - Please follow up on your TSH level with your PCP. Medications Your medication list has been reviewed and reconciled. An updated list is included with your discharge paperwork; please review this list closely and make note of any changes. We sent a prescription for Doxycycline to your pharmacy. Take 100mg one tablet twice a day for 8 days. Keep these things in mind when you are taking it: 1) Have this with a full glass of water. 2) Sit upright when you are taking it. 3) Take with food if you have nausea. 4) Don't take it with calcium. 5) Use sunscreen while going outside. Take your medications as instructed; do not skip a dose. Make sure all of your doctors know every medicine you are taking (including ipig-iyn-hvrxfts medicines, vitamins, and supplements). Call your PCP before taking any new medicines because some of these may interact with your current medications, or may make your symptoms worse. Follow-up appointments: Make a follow-up appointment with your PCP within the next week. It is very important that you follow up with them shortly after discharge from the hospital. Make a follow up appointment with your hematology. Make a follow up appointment with your cardiology. Keep all your follow-up appointments as already scheduled. If you cannot make an appointment, notify your provider. Please bring a copy of this discharge summary with you to your next office appointment so that your provider can review it at that time and stay updated on your hospitalization and potential changes in your care. You may call [phone] and ask to leave a message for Dr. Erickson if you have any issues filling your new prescriptions or any questions about your hospitalization. Contact your PCP if your symptoms return or worsen. Call 911 or go to the ER if you experience any of the following: Sudden, severe abdominal pain or nausea/vomiting Severe chest pain, or chest pain that radiates (moves) to your jaw or arm Sudden, severe shortness of breath or difficulty breathing Thank you for allowing us to participate in your care. Pending Studies at Discharge: Yes Studies:: Factor 9 antigen & activity Anaplasmosis, Babesiosis, Rickettsia PCR Stand-Alone Forms: [employer], Smoking Cessation Medications and DC Order Prescriptions: New diclofenac sodium [Voltaren Arthritis Pain] 1 % Gel 2 g EXT QID PRN (Reason: Joint pain) Qty: 50 0RF Rx Instructions: Please give tube from hospital. doxycycline hyclate 100 mg tablet 100 mg PO BID Qty: 24 0RF Continued metoprolol succinate 25 mg tablet extended release 24 hr 50 mg PO QAM gabapentin 800 mg tablet 600 mg PO TID pravastatin 40 mg tablet 40 mg PO HS omeprazole 40 mg Capsule,Delayed Release(Dr/Ec) 40 mg PO QPM duloxetine 20 mg Capsule, Delayed Rel Sprinkle 30 mg PO QAM lutein-zeaxanthin 20 mg- 1,000 mcg Capsule 1 cap PO QAM diphenhydramine HCl [Banophen] 50 mg Capsule 50 mg PO HS PRN (Reason: Sleep) ketoconazole 2 % cream 1 applic topical BID olmesartan 20 mg tablet 20 mg PO QAM acetaminophen [Tylenol Extra Strength] 500 mg tablet 1,000 mg PO Q8 PRN (Reason: Pain) Rx Instructions: over the counter Discontinued aspirin 81 mg Tablet 81 mg PO HS Excedrin Migraine 250-250-65 mg Tablet 2 tab PO Q12H PRN (Reason: Migraine Headache) sulfamethoxazole-trimethoprim 800-160 mg tablet 1 tab PO BID Patient Comments: filled 06/04 10 day supply #20 Discharge Orders: Discharge Order (Routine); Ordered 06/09/25 Ordered By: Danica Erickson Admission Data Admit Date/Time: 06/07/25 11:28 Attending Provider: Flora Mane Admit Provider: Flora Mane Primary Care Provider: Jose Olmstead Other Providers: Flora Mane; Bryan Frye; Mendel Quinn Other Interventions: Discharge Summary Assessment (RN) Last Done: 06/09/25 15:18 Supervising Physician Co-Signing Physician Notes Resident supervision note I personally examined the patient and verified all vieira points of history and exam, discussed case, and agree with decision making with Dr. Erickson with the following additions/exceptions: S-patient feeling much better, no fevers, good appetite, no further arthralgias. No further atrial fibrillation and no heart palpitations. I discussed his care with hematology on the day of discharge O- Vitals Reviewed Gen: AAOx3, NAD HEENT: Anicteric sclerae, EOMI CV: RRR no mgr nl S1S2 Pulm: CTAB no wcr Abd: +BS soft NT ND no masses or hernias Ext: No edema Skin: No rashes, warm/dry Neuro: Full strength throughout CBC, BMP, LFTs, blood cultures reviewed A/P-74 yo male here with acute Lyme disease and developed paroxysmal rapid atrial fibrillation. His Lyme disease is much improved with doxycycline -Continue doxycycline to complete a 14-day course after discharge, follow blood cultures and further tickborne studies which are pending after discharge - Consult cardiology appreciated, echo normal, TSH normal, electrolytes replaced and optimized. 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 Plan for 30-day event monitor after discharge and follow-up with cardiology Stable for discharge to home I spent 35 minutes in total in the care of this patient with discharge planning, coordination of care, discussion and counseling with patient, and speaking with specialists
[2025-06-09 15:20] VITALS: BP 127/78; PULSE 81
--- NOTE | 2025-06-09 16:06 | Electrocardiogram Report ---
Test Reason : Blood Pressure : */* mmHG Vent. Rate : 125 BPM Atrial Rate : 122 BPM P-R Int : * ms QRS Dur : 88 ms QT Int : 326 ms P-R-T Axes : * -37 99 degrees QTcB Int : 470 ms Atrial fibrillation with rapid ventricular response Left axis deviation Low voltage QRS Nonspecific T wave abnormality Abnormal ECG When compared with ECG of 07-Jun-2025 08:00, (unconfirmed) Atrial fibrillation has replaced Sinus rhythm Confirmed by Bryan Frye ([id number]) on 06/09/2025 4:05:48 PM Referred By: Jose Olmstead Confirmed By: Bryan Frye
--- NOTE | 2025-06-09 16:15 | Oncology Consultation ---
Date of Consultation June 09, 2025 Assessment & Plan (1) Paroxysmal atrial fibrillation: agree with Eliquis as a drug of choice for this particular patient for anticoagulation. However will recommend checking factor IX levels. Factor IX activity and antigen levels can be checked for this particular patient. Plan thank you for this interesting Hematological consult. Hematology will continue to follow the patient make appropriate recommendations. History of Present Illness Reason for Consultation: Recommendations for anticoagulation Attending Physician: Flora Mane MD History of Present Illness patient with who is 74 years old with noted history of factor IX deficiency, no recurrent history of bleeding or bruising. No fever or chills. Currently was diagnosed with atrial fibrillation, hematology has been consulted to assist in management of this patient and make appropriate recommendations for anticoagulation. The patient was recently diagnosed with atrial fibrillation. He does have a prior history of DVT and was on Eliquis for 3 months. No recent recurrent episodes of bleeding or bruising. Allergies Allergy/AdvReac Type Severity Reaction Status Date / Time adhesive Allergy Intermediate hives Verified 03/15/25 06:39 latex Allergy Mild RASH AFTER Verified 03/15/25 06:39 LONG EXPOSURE tetanus immune globulin Allergy Mild UNSURE, Verified 03/15/25 06:39 POSS RASH Home Medications Medication Instructions Recorded Confirmed Type gabapentin 800 mg tablet 600 mg PO TID 08/22/20 06/07/25 History metoprolol succinate 25 mg 50 mg PO QAM 08/22/20 06/07/25 History tablet,extended release 24 hr pravastatin 40 mg tablet 40 mg PO HS 08/22/20 06/07/25 History diphenhydramine HCl 50 mg capsule 50 mg PO HS PRN Sleep 05/11/21 06/07/25 History (Banophen) duloxetine 20 mg capsule,delayed 30 mg PO QAM 01/12/24 06/07/25 History release sprinkle lutein 20 mg-zeaxanthin 1,000 mcg 1 cap PO QAM 01/12/24 06/07/25 History capsule omeprazole 40 mg capsule,delayed 40 mg PO QPM 01/12/24 06/07/25 History release acetaminophen 500 mg tablet 1,000 mg PO Q8 PRN Pain 06/07/25 06/07/25 History (Tylenol Extra Strength) ketoconazole 2 % topical cream 1 applic topical BID 06/07/25 06/07/25 History olmesartan 20 mg tablet 20 mg PO QAM 06/07/25 06/07/25 History diclofenac sodium 1 % topical gel 2 g EXT QID PRN Joint pain #50 06/09/25 Rx (Voltaren Arthritis Pain) grams doxycycline hyclate 100 mg tablet 100 mg PO BID #16 tabs 06/09/25 Rx Patient History Medical History Right inguinal hernia Kevin disease PVC's (premature ventricular contractions) controlled w/ metoprolol History of prostate cancer 2017 s/p prostatectomy PAC (premature atrial contraction) per records, no cardio Peripheral neuropathy feet Osteoarthritis Dyslipidemia History of COVID-19 (2020) no hosp; resolved Migraines Hx of deep venous thrombosis 2022- was on Xarelto x1 month then discontinued Parathyroid disorder s/p parathyroidectomy secondary to 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 Hx of vasectomy H/O right inguinal hernia repair Right Open Inguinal Hernia Repair with Mesh Dr. Kraus 10/02/2020 LMA#5 Hx of blepharoplasty Hx of parathyroidectomy left side H/O cataract removal with insertion of prosthetic lens R/L H/O oral surgery History of appendectomy History of cardiac cath (1999) having palpitations and found to have PVC's, [facility], denies stents; f/u PCP Hx of colonoscopy Status post gamma knife treatment for acoustic neuroma 2004 H/O prostatectomy 02/20/2018 prostate cancer Family History Mother Breast cancer Hypertension Father Cancer Other Diabetes Social History Smoking Status: Never smoker Second Hand Exposure: No; Do You Dip or Chew Tobacco: No; Hx Alcohol Use: No Hx Substance Use: No Preferred Language: Macanese Communication Ability: Effective Pharmacy Retail Support Specialist Required: No Beliefs That Will Affect Care: None marital status: Current Living Situation: Spouse and Family current occupational status: retired How many Children do You have: 2 Feels Safe at Home: Yes Safety Concerns: Feels Safe At This Time Assistive Devices: Denture - Upper, Denture - Lower and Glasses Review of Systems Review of Systems: All systems reviewed & are unremarkable except as noted in HPI & below Constitutional: as per Subjective / HPI Eyes: as per Subjective / HPI Ear, Nose, Mouth, Throat: as per Subjective / HPI Respiratory: as per Subjective / HPI Cardiovascular: as per Subjective / HPI Gastrointestinal: as per Subjective / HPI Genitourinary: + as per Subjective / HPI Musculoskeletal: as per Subjective / HPI Integumentary: as per Subjective / HPI Neurologic: as per Subjective / HPI Psychiatric: as per Subjective / HPI Endocrine: as per Subjective / HPI Hematologic / Lymphatic: as per Subjective / HPI Allergy / Immunological: as per Subjective / HPI Physical Exam Constitutional: WD/WN, vitals as above Eyes: PERRL, conjunctivae normal, anicteric sclerae ENMT: external ear and nose normal, oropharynx normal Neck: trachea midline, no thyromegaly Respiratory: normal respiratory effort, lungs clear to auscultation Cardiovascular: RRR, no murmur, no edema Gastrointestinal (Abdomen): normal bowel sounds, soft, nontender, no hepatosplenomegaly Musculoskeletal: no cyanosis or clubbing, extremities motor strength 5/5 Skin: no rashes, warm and dry Neurologic: patellar DTR's 2+ bilat, sensation intact Psychiatric: A+Ox3, euthymic affect Genitourinary: no testicular masses, no penis abnormality Lymphatic: no cervical or axillary lymphadenopathy Results & Data Vital Signs (Past 12 Hours) Vital Signs Temp Pulse Pulse Pulse Resp BP BP 06/09/25 15:18 36.8 C 81 86 19 130/80 127/78 06/09/25 11:39 36.8 C 86 19 130/80 06/09/25 09:00 85 06/09/25 08:29 37 C 82 19 129/76 Pulse Ox O2 Del Method 06/09/25 15:18 94 06/09/25 11:39 94 Room Air 06/09/25 09:00 06/09/25 08:29 95 Room Air
--- NOTE | 2025-06-09 16:26 | Electrocardiogram Report ---
Test Reason : Blood Pressure : */* mmHG Vent. Rate : 87 BPM Atrial Rate : 87 BPM P-R Int : 170 ms QRS Dur : 94 ms QT Int : 386 ms P-R-T Axes : 75 -35 74 degrees QTcB Int : 464 ms Normal sinus rhythm Left axis deviation Abnormal ECG When compared with ECG of 07-Jun-2025 21:04, (unconfirmed) Sinus rhythm has replaced Atrial fibrillation Confirmed by Bryan Frye ([id number]) on 06/09/2025 4:26:15 PM Referred By: Jose Olmstead Confirmed By: Bryan Frye
--- NOTE | 2025-06-09 16:44 | Billing Data ---
Date of Service June 09, 2025 Coding Level of Care Code 76985 INP/OBS DISCH >30 MIN
[2025-06-13 19:22] LABS: Q Fever IgG, Phase I NEGATIVE
== END 2025-06-09 16:20 | disposition home or self-care (01) | DRG 867 ==
LOC: SUATTDRO → ED 07:43 → 2N 11:28